=== PATIENT | male | born 1970 | race Caucasian/White ===

== ENCOUNTER 2017-09-15 07:40 | Observation (INO) | payer OTHER ==
[~2017-09-15] VITALS: Ht 185.4 cm; Wt 115.7 kg
[~2017-09-15 07:40] MED LIST: CARAFATE1 GM PO; GLUCOPHAGE500 MG PO; ZANTAC150 MG
[2017-09-15] MEDS ORDERED: ASPIRIN 81 MG CHEW TAB PO STA (07:58)
--- NOTE | 2017-09-15 08:28 | Diagnostic Imaging Report ---
PROCEDURE: CHEST SINGLE (PORTABLE) COMPARISON: None. INDICATIONS: CHEST PAIN FINDINGS: LUNGS: No consolidations or edema. PLEURA: No effusions or pneumothorax. HEART \T\ MEDIASTINUM: The heart is within normal size-limits. There is mild tortuosity of the aorta. BONES \T\ SOFT TISSUES: No acute findings. CONCLUSION: No acute thoracic abnormality. Philippe Torres D.O. Dictated by: Philippe Torres D.O. on 09/15/2017 at 8:32 Electronically approved by: Philippe Torres D.O. on 09/15/2017 at 8:32
[2017-09-15 09:00] LABS: BASOPHILS # (AUTO) 0.1 (0.0-0.1); BASOPHILS % 1.2 % (0.0-1.0); EOSINOPHILS # (AUTO) 0.2 (0.0-0.4); HEMATOCRIT 42.8 % (38.2-49.6); HEMOGLOBIN 14.6 g/dL (14.0-18.0); LYMPHOCYTES # (AUTO) 2.8 (1.0-3.2); LYMPHOCYTES % 38.5 % (18.0-39.1); MEAN CORPUSCULAR HGB CONC 34.1 g/dL (31-35); MEAN CORPUSCULAR VOLUME 93.9 fL (81-99); MONOCYTES # (AUTO) 0.8 (0.2-0.8); MONOCYTES % 10.2 % (4.4-11.3); NEUTROPHILS # (AUTO) 3.5 (2.1-6.9); NEUTROPHILS % 47.6 % (38.7-80.0); PLATELET COUNT 197 x10e3/uL (140-360); RED BLOOD COUNT 4.56 x10e6/uL (4.3-5.7)
[2017-09-15] MEDS: NITROGLYCERIN 0.4 MG SUBL SL PRN ×3 (09:00→09:20)
[2017-09-15 09:09] LABS: INR 0.94; PROTHROMBIN TIME 11.8 seconds (11.9-14.5)
[2017-09-15 09:10] LABS: PARTIAL THROMBOPLASTIN TIME 25.2 seconds (23.8-35.5)
[2017-09-15] MEDS ORDERED: MORPHINE SULFATE 2 MG/ML SYR IV STA ×2 (09:17→10:54)
[2017-09-15 09:22] LABS: ALANINE AMINOTRANSFERASE 32 IU/L (0-55); ALBUMIN 3.8 g/dL (3.5-5.0); ALBUMIN/GLOBULIN RATIO 1.2 (0.8-2.0); ALKALINE PHOSPHATASE 41 IU/L (40-150); ANION GAP 16.3 mmol/L (8-16); BLOOD UREA NITROGEN 13 mg/dL (7-26); BUN/CREATININE RATIO 15 (6-25); CALCIUM 9.5 mg/dL (8.4-10.2); CARBON DIOXIDE 24 mmol/L (22-29); CHLORIDE 101 mmol/L (98-107); CREATINE KINASE 92 IU/L (30-200); CREATININE, SERUM 0.87 mg/dL (0.72-1.25); EST GLOMERULAR FILTRATION RATE > 60 ML/MIN (60-); GLUCOSE 275 mg/dL (74-118); POTASSIUM 4.3 mmol/L (3.5-5.1); SODIUM 137 mmol/L (136-145)
[2017-09-15] MEDS ORDERED: LIDOCAINE VISC 2% SOLN 15 ML UDC PO ONE (09:45)
[2017-09-15] MEDS ORDERED: MAGNESIUM/ALUMINUM/SIMETHICONE 30 ML UDC PO ONE (09:45)
--- NOTE | 2017-09-15 11:22 | Diagnostic Imaging Report ---
PROCEDURE: CT scan of the chest WITH intravenous contrast, using PE protocol. TECHNIQUE: The chest was scanned utilizing a multidetector helical scanner from the lung apex through the level of the adrenal glands after the IV administration of 72 cc of Isovue 370. Coronal and sagittal multiplanar reformations were obtained. DLP: 642.05 mGy-cm COMPARISON: None. INDICATIONS: CHEST PAIN FINDINGS: Lines/tubes: None. Lungs and Airways: The lungs and airways are normal with no focal abnormality demonstrated. No filling defects within the pulmonary arteries are noted. Pleura: The pleural spaces are clear. Heart and mediastinum: The thyroid gland is normal. No significant mediastinal, hilar or axillary lymphadenopathy is seen. The heart and pericardium are within normal limits. There is a persistent left superior vena cava. The azygos vein is on the left side. Soft tissues: Normal. Abdomen: Limited contrast-enhanced views of the upper abdomen show no abnormality within the visualized liver, spleen, pancreas or kidneys. The adrenal glands are normal. Bones: Degenerative changes of the spine. IMPRESSION: 1. No CTA evidence of pulmonary emboli. 2. Left-sided superior vena cava. Philippe Torres D.O. Dictated by: Philippe Torres D.O. on 09/15/2017 at 11:07 Electronically approved by: Philippe Torres D.O. on 09/15/2017 at 11:27
[2017-09-15] MEDS ORDERED: METOPROLOL TARTRATE 25 MG TAB PO SCH (11:45)
[2017-09-15] MEDS ORDERED: MORPHINE SULFATE 2 MG/ML SYR IV PRN (11:45)
[2017-09-15] MEDS ORDERED: LISINOPRIL10 MG PO (12:56)
[2017-09-15] MEDS ORDERED: NOVOLOG MI100 UNIT/1 (12:56)
[2017-09-15 13:30] VITALS: BP 142/68
--- NOTE | 2017-09-15 14:46 | Consultation ---
DATE OF CONSULTATION: September 15, 2017 CARDIOLOGY CONSULTATION INDICATIONS: Chest pain. HISTORY OF PRESENT ILLNESS: Mr. Roth is a healthy 47-year-old gentleman with a history of hypertension, for which he takes lisinopril. He came in with almost constant substernal chest pressure. This is worse when he coughs or moves. It is in the left side of his chest along his costochondral howard. He denies radiation. He does not relate it to exertion. CT scan done in the chest did not show any abnormalities, especially pulmonary emboli. PAST MEDICAL HISTORY: Hypertension. SOCIAL HISTORY: Patient smokes a pack of cigarettes a day. MEDICATIONS: Reviewed. DRUG ALLERGIES: PENICILLIN. REVIEW OF SYSTEMS: Negative except as dictated in the history of present illness. PHYSICAL EXAMINATION: VITALS: Afebrile, heart rate 66, blood pressure 135/86, O2 sats 95%. CARDIOVASCULAR: Regular rhythm. S4 gallop. LUNGS: Clear to auscultation bilaterally. CHEST WALL: Is tender. ABDOMEN: Soft. LABORATORY DATA: Cardiac troponin is negative. BNP level is normal. Lipase is negative. Remaining labs are normal. Glucose was 275. ASSESSMENT: Costochondritis. RECOMMENDATION: Initiation of NSAIDs, i.e., ibuprofen 400 mg 3 times a day. Echocardiogram to evaluate for pericarditis. If these are normal and once performed, the patient may be discharged with close followup in the office. I thank Dr. Guerra for this consultation. Job#: [id number] PHOEBE
[2017-09-15] MEDS ORDERED: IBUPROFEN 400 MG TAB PO SCH (15:00)
[2017-09-15] MEDS ORDERED: DEXTROSE 50% SYRINGE 50 ML IV PRN (15:00)
[2017-09-15] MEDS ORDERED: LISINOPRIL 20 MG TAB PO SCH (15:00)
[2017-09-15] MEDS ORDERED: HYDROCHLOROTHIAZIDE 25 MG TAB PO SCH (15:00)
[2017-09-15 15:25] VITALS: BP 151/86
[2017-09-15] MEDS ORDERED: ADDERALL 12.512.5 MG (15:49)
[2017-09-15] MEDS ORDERED: ADDERALL 10 MG10 MG (15:49)
[2017-09-15] MEDS ORDERED: NICODERM CQ1 EAC1 TOP (15:55)
[2017-09-15] MEDS ORDERED: ESIDRIX25 MG PO (15:55)
[2017-09-15] MEDS ORDERED: Ibuprofen PO (15:55)
[2017-09-15 16:23] LABS: CREATINE KINASE 72 IU/L (30-200)
[2017-09-15] MEDS ORDERED: MORPHINE SULFATE INJ 4 MG/ML INJ IV PRN (16:30)
[2017-09-15] MEDS ORDERED: FAMOTIDINE 20 MG TAB PO SCH (16:30)
[2017-09-15] MEDS ORDERED: INSULIN LISPRO 100 UNIT/1 ML 3ML VIAL SQ SCH (16:30)
[2017-09-15] MEDS ORDERED: ENOXAPARIN SOD INJ 40 MG/0.4 ML SYR SC SCH (17:00)
[2017-09-15] MEDS ORDERED: SODIUM CHLORIDE 0.9% 50ML 50 ML ONE (19:48)
[2017-09-15] MEDS ORDERED: IOPAMIDOL 370 MG/ML 200 ML INFUS..BTL INJ ONE (19:48)
--- NOTE | 2017-09-16 01:25 | Discharge Summary ---
ADMISSION DIAGNOSES 1. Chest pain. 2. Type 2 diabetes. 3. Gastritis. 4. Hypertension. 5. Cigarette use. DISCHARGE DIAGNOSES 1. Chest pain. 2. Type 2 diabetes. 3. Gastritis. 4. Hypertension. 5. Cigarette use. 6. Rule out acute coronary syndrome. HISTORY: Patient has a history of type 2 diabetes, pancreatitis, gastritis, and ADHD. No surgical history. HOSPITAL COURSE: A 47-year-old male complains of sharp intermittent chest pain that began around 4 a.m. The pain radiated to the left shoulder to axillary. Starting at 5:30, the pain became constant. There were no associated palpitations, shortness of breath, diaphoresis, or change in consciousness. Pain improved with the 3rd dose of sublingual nitroglycerin. Upon assessment, pain is now described as an 8. On admission, the patient had an EKG that showed normal sinus rhythm. Echo showed 55 to 60% EF. Troponin negative times 1. Cardiology consulted. Patient resumed on home medications for gastritis and hypertension. He was prescribed nicotine patch for the cigarette use and a low-dose sliding scale for the diabetes. Per cardiology, patient can discharge home due to the negative chest x-ray, negative CT of the chest as well as echo showing EF of 55 to 60%. He can be given a week of ibuprofen 400 mg t.i.d. per cardiology and follow up in 7 days. Due to the high diastolic blood pressure, patient was also prescribed hydrochlorothiazide 12.5 mg p.o. At time of discharge, the patient's blood pressure is 143/72 with a pulse of 71. Sodium 137, potassium 4.3, creatinine 0.87, GFR of over 60. WBC 7.32, hemoglobin 14.6, and hematocrit 42.8. Vital signs stable. Patient afebrile. He will discharge home and follow up with cardiology in 2 weeks and primary care in 1 to 2 weeks. Patient understands discharge instructions and agrees to discharge. Dictated by Ingrid Jamison NP JUSTINA TERAN MD Job#: [id number] CF
[2017-09-16] MEDS ORDERED: SUCRALFATE 1 GM TAB PO SCH (07:30)
[2017-09-16] MEDS ORDERED: NICOTINE 14 MG/EA PATCH TOP SCH ×2 (09:00)
[2017-09-16] MEDS ORDERED: LISINOPRIL 20 MG TAB PO SCH (09:00)
[2017-09-16] MEDS ORDERED: FAMOTIDINE 20 MG TAB PO SCH (09:00)
[2017-09-16] MEDS ORDERED: ASPIRIN 325 MG TAB EC PO SCH (09:00)
[2017-09-16] MEDS ORDERED: NITROGLYCERIN 0.1MG/HR PATCH TOP SCH (09:00)
== END 2017-09-15 19:18 | disposition home or self-care (01) ==
LOC: ER 07:40 → ERHOLD 11:34 → IMCU 12:35
PROVIDERS: ADMIT Internal Medicine; ATTEND Internal Medicine
DX: R07.2 Precordial pain (principal); M94.0 Chondrocostal junction syndrome [Tietze]; I10 Essential (primary) hypertension; E11.9 Type 2 diabetes mellitus without complications; F17.210 Nicotine dependence, cigarettes, uncomplicated; F90.9 Attention-deficit hyperactivity disorder, unspecified type; K85.90 Acute pancreatitis without necrosis or infection, unspecified; K29.70 Gastritis, unspecified, without bleeding
CPT/HCPCS: 36415; 71045; 71260; 80053; 82550; 82553; 83690; 83880; 84484; 85025; 85610; 85730; 93005; 93306; 99284; G0378; J1650; J2270 ×2; Q9967

== ENCOUNTER 2018-09-15 10:01 | Inpatient (IN) | payer BC, OTHER ==
[2018-09-15] VITALS (13 sets, daily range): BP systolic 89–123; BP diastolic 46–86
[~2018-09-15] VITALS: Ht 185.4 cm; Wt 93.0 kg
[~2018-09-15 10:01] MED LIST changes: +ADDERALL 10 MG10 MG; +ADDERALL 12.512.5 MG; +ESIDRIX25 MG PO; +Ibuprofen PO; +LISINOPRIL10 MG PO; +NICODERM CQ1 EAC1 TOP; +NOVOLOG MI100 UNIT/1
--- OUTSIDE RECORDS SUMMARY | 2018-09-15 10:04 | XMS REPORT | Clinical Summary ---
Author Author [facility] Organization [facility] Address Unknown Phone Unavailable Care Team Providers Care Roller Checker Name Role Phone Vivek Pino MD PCP Allergies Comments Active Allergy Reactions Severity Noted Date Penicillins Anaphylaxis High 01/27/2017 Medications End Date Status Medication Sig Dispensed Refills Start Date Active insulin ASPART (NovoLOG) Inject under 0 100 unit/mL injection the skin 3 (three) times a day before meals. Active metFORMIN (GLUCOPHAGE) Take 500 mg 0 500 mg tablet by mouth 2 (two) times a day with meals. Active lisinopril Take 10 mg by 0 (PRINIVIL,ZESTRIL) 10 mg mouth daily. tablet Active insulin NPH and regular Inject 20 0 human (HumuLIN 70/30) 100 Units under unit/mL (70-30) injection the skin 2 (two) times a day before meals. Active Problems Not on file Social History Date Tobacco Use Types Packs/Day Years Used Current Every Day Smoker 2 Alcohol Use Drinks/Week oz/Week Comments Yes Sex Assigned at Date Recorded Not on file Industry Job Start Date Occupation Not on file Not on file Not on file Travel End Travel History Travel Start No recent travel history available. Last Filed Vital Signs Not on file Plan of Treatment Not on file Results Not on fileafter 09/14/2017 Advance Directives Patient has advance care planning documents on file. For more information, eren bearden contact: Julio Calderon [address] [place] [address]
--- NOTE | 2018-09-15 10:42 | NUR ---
PATIENT REPORTS HE IS NOT ALLERGIC TO TORADOL, STATES "IT DOESNT WORK". MIKEDRAFTER AT BEDSIDE FOR RE-EVAL AND DISCUSSING THE CURRENT PLAN OF CARE WITH PATIENT,VERBALIZED UNDERSTANDING.
[2018-09-15] MEDS ORDERED: KETOROLAC TROMETHAMINE 30 MG/ML VIAL IV NR (10:45)
[2018-09-15] MEDS: SODIUM CHLORIDE 0.9% 1000ML 1,000 ML IV STA (10:45)
[2018-09-15] MEDS: DIPHENHYDRAMINE HCL INJ 50 MG/ML VIAL IV ONE ×2 (10:46→10:49)
[2018-09-15] MEDS: METOCLOPRAMIDE HCL 10 MG/2ML VIAL IV ONE ×2 (10:46→10:49)
[2018-09-15 10:56] LABS: BASOPHILS # (AUTO) 0.1 (0.0-0.1); EOSINOPHILS # (AUTO) 0.1 (0.0-0.4); EOSINOPHILS % 0.8 % (0.0-6.0); HEMATOCRIT 40.1 % (38.2-49.6); HEMOGLOBIN 15.3 g/dL (14.0-18.0); LYMPHOCYTES # (AUTO) 2.7 (1.0-3.2); LYMPHOCYTES % 24.3 % (18.0-39.1); MEAN CORPUSCULAR HEMOGLOBIN 32.8 pg (28-32); MEAN CORPUSCULAR HGB CONC 38.2 g/dL (31-35); MEAN CORPUSCULAR VOLUME 85.9 fL (81-99); MONOCYTES % 9.3 % (4.4-11.3); NEUTROPHILS % 64.1 % (38.7-80.0); PLATELET COUNT 212 x10e3/uL (140-360); RED BLOOD COUNT 4.67 x10e6/uL (4.3-5.7); RED CELL DISTRIBUTION WIDTH 11.9 % (11.7-14.4)
--- NOTE | 2018-09-15 10:57 | NUR ---
1045- 1L NS started wide open to RT AC 1045- Reglan 10mg slow IVP to RT AC 1048- Benadryl 25mg slow IVP to RT AC 1056- Toradol 30mg IVP to RT AC ALISSA Lizama
[2018-09-15 11:30] LABS: ALANINE AMINOTRANSFERASE 26 IU/L (0-55); ALBUMIN 4.1 g/dL (3.5-5.0); ALBUMIN/GLOBULIN RATIO 1.1 (0.8-2.0); ALKALINE PHOSPHATASE 53 IU/L (40-150); ANION GAP 22.7 mmol/L (8-16); BLOOD UREA NITROGEN 32 mg/dL (7-26); BUN/CREATININE RATIO 18 (6-25); CALCIUM 10.1 mg/dL (8.4-10.2); CARBON DIOXIDE 25 mmol/L (22-29); CHLORIDE 72 mmol/L (98-107); CREATINE KINASE 81 IU/L (30-200); CREATININE, SERUM 1.82 mg/dL (0.72-1.25); EST GLOMERULAR FILTRATION RATE 40 ML/MIN (60-)
[2018-09-15 11:35] LABS: BILIRUBIN,URINE NEGATIVE (NEGATIVE); CLARITY,URINE CLEAR (CLEAR); COLOR,URINE YELLOW (YELLOW); KETONES,URINE NEGATIVE (NEGATIVE); LEUKOCYTE ESTERASE ,URINE NEGATIVE (NEGATIVE); NITRITE,URINE NEGATIVE (NEGATIVE); PROTEIN,URINE DIPSTICK NEGATIVE (NEGATIVE); URINE UROBILINOGEN 0.2 mg/dL (0.2 - 1)
[2018-09-15 11:37] LABS: GLUCOSE 730 mg/dL (74-118); POTASSIUM 2.7 mmol/L (3.5-5.1); SODIUM 117 mmol/L (136-145)
--- NOTE | 2018-09-15 11:37 | NUR ---
LAB CALLED TO NOTIFY CRITICAL LAB RESULTS, NA+ 117, K+ 2.7, GLUCOSE 730. NOTIFIED ALISSA MCKEON OF LAB RESULTS. NO NEW ORDERS NOTED AT THIS TME.
[2018-09-15] MEDS ORDERED: SODIUM CHLORIDE 0.9% 1000ML 1,000 ML IV SCH ×2 (11:57→15:15)
[2018-09-15] MEDS ORDERED: DEXTROSE 5%/0.45% SOD CHL 1,000 ML IV SCH (11:57)
[2018-09-15] MEDS ORDERED: KCL 40MEQ/0.9% SOD CHL 1,000 ML IV ONE (12:00)
[2018-09-15] MEDS ORDERED: POTASSIUM CHLORIDE 20 MEQ TAB CR PO NR (12:00)
[2018-09-15] MEDS ORDERED: MAGNESIUM SULF 1GRAM/DEXTROSE 100 ML IV PRN (12:00)
[2018-09-15] MEDS ORDERED: POTASSIUM CHLORIDE 20MEQ/100ML 200 ML IV PRN (12:00)
[2018-09-15] MEDS ORDERED: INSULIN REGULAR, HUMAN 3ML VL 1 UNIT in SODIUM CHLORIDE 0.9% 100 ML IV SCH ×2 (12:00)
[2018-09-15] MEDS ORDERED: ONDANSETRON HCL INJ 2MG/ML 2ML 2 MG/ML VIAL IV PRN (12:00)
--- NOTE | 2018-09-15 12:04 | Diagnostic Imaging Report ---
EXAM: CHEST 2 VIEWS, PA and lateral DATE: 09/15/2018 Time stamp on exam: 10:50 AM INDICATION: Dizziness COMPARISON: None FINDINGS: LINES/TUBES: None LUNGS: No consolidations or edema. Nodular opacities overlie the lower lung cardenas compatible with prominent nipple shadows. PLEURA: No effusions or pneumothorax. HEART AND MEDIASTINUM: Normal size and contour. BONES AND SOFT TISSUES: No acute findings. Degenerative changes of the spine with mild wedging of two of the lower thoracic spine vertebral bodies. IMPRESSION: No acute thoracic abnormality. Signed by: Dr. Philippe Torres DO on 09/15/2018 12:00 PM
[2018-09-15] MEDS ORDERED: HUMAN IV SCH ×2 (12:15)
[2018-09-15] MEDS ORDERED: SODIUM CHLORIDE 0.9% IV SCH ×2 (12:15)
[2018-09-15] MEDS ORDERED: INSULIN REGULAR, HUMAN 3ML VL 100 UNIT in SODIUM CHLORIDE 0.9% 99 ML IV SCH ×2 (12:15)
[2018-09-15] MEDS ORDERED: INSULIN REGULAR IV SCH ×2 (12:15)
[2018-09-15] MEDS ORDERED: [UNRECOGNIZED DRUG - OTHER] IV SCH ×2 (12:15)
[2018-09-15 12:16] LABS: EPITHELIAL CELLS,URINE FEW /LPF
--- OUTSIDE RECORDS SUMMARY | 2018-09-15 12:23 | XMS REPORT | Clinical Summary ---
Author Author [facility] Organization [facility] Address Unknown Phone Unavailable Care Team Providers Care Housekeeper Head Name Role Phone Vivek Pino MD PCP [...] more information, eren bearden contact: Julio Calderon [address] [place] [address]
[2018-09-15] MEDS: POTASSIUM CHLORIDE 20MEQ/100ML 100 ML INJ PRN (12:33)
--- NOTE | 2018-09-15 12:43 | Diagnostic Imaging Report ---
History: Headache, dizziness Comparison studies: None Technique: Axial images were obtained from the skull base to the vertex. Coronal and sagittal reconstructions obtained from the axial data. Dose modulation, iterative reconstruction, and/or weight based adjustment of the mA/kV was utilized to reduce the radiation dose to as low as reasonably achievable. Findings: Scalp/skull: No abnormalities. No fractures, blastic or lytic lesions. Extra-axial spaces: No masses. No fluid collections. Brain sulci: Appropriate for age. Ventricles: Normal in size and configuration. No hydrocephalus. Parenchyma: No abnormal densities. No masses, hemorrhage, acute or chronic cortical vascular insults. Sellar/suprasellar region: No abnormalities Craniocervical junction: Patent foramen magnum. No Chiari one malformation. IMPRESSION: No abnormalities . Signed by: DR Gus Wong M.D. on 09/15/2018 12:40 PM
[2018-09-15] MEDS ORDERED: INSULIN REGULAR, HUMAN 3ML VL 100 UNIT in SODIUM CHLORIDE 0.45% 100 ML 100 ML IV SCH ×2 (13:57)
[2018-09-15] MEDS ORDERED: DEXTROSE 50% SYRINGE 50 ML IV PRN ×2 (14:00)
[2018-09-15] MEDS: ACETAMINOPHEN/CODEINE 300MG - 30MG TAB PO PRN (14:09)
--- NOTE | 2018-09-15 14:15 | NUR ---
notified dr combs of consult
[2018-09-15 14:59] LABS: CALCIUM 9.4 mg/dL (8.4-10.2); CREATININE, SERUM 1.61 mg/dL (0.72-1.25); MAGNESIUM 2.4 MG/DL (1.3-2.1)
[2018-09-15] MEDS ORDERED: POTASSIUM CHLORIDE 20MEQ/100ML 100 ML IV ONE (15:00)
[2018-09-15] MEDS ORDERED: PNEUMOCOCCAL VACCINE POLYVALENT 23 MCG/0.5 ML VIAL IM SCH (15:06)
[2018-09-15 15:31] LABS: FREE T4 (FREE THYROXINE) 0.99 ng/dL (0.8-1.8); THYROID STIMULATING HORMONE 1.119 uIU/mL (0.350-4.940)
[2018-09-15] MEDS ORDERED: [UNRECOGNIZED DRUG - OTHER] (17:44)
[2018-09-15] MEDS ORDERED: ASPIRIN81 MG (17:44)
[2018-09-15] MEDS ORDERED: LANTUS 3ML100 UNITS/ SQ (17:44)
[2018-09-15] MEDS ORDERED: VENTOLIN HFA18 GM IH (17:44)
[2018-09-15] MEDS ORDERED: ATENOLOL-CHLOR1 EACH PO (17:44)
[2018-09-15] MEDS ORDERED: trelegy IH (17:44)
[2018-09-15] MEDS ORDERED: CHLOR (17:44)
[2018-09-15] MEDS ORDERED: NIFEDIPINE ER30 M1 PO (17:44)
[2018-09-15] MEDS: POTASSIUM CHLORIDE 40 MEQ in SODIUM CHLORIDE 0.9% 1000ML 1,000 ML IV SCH (18:14)
[2018-09-15] MEDS ORDERED: HYDRALAZINE HCL 20 MG/ML VIAL IV PRN (18:45)
[2018-09-15] MEDS ORDERED: NIFEDIPINE CR 30 MG TAB PO SCH (18:45)
[2018-09-15] MEDS: METOCLOPRAMIDE HCL 10 MG TAB PO SCH (20:02)
--- NOTE | 2018-09-15 21:25 | Consultation ---
DATE OF CONSULTATION: 09/15/2018 Endocrine Consultation Thank you very much for referring this patient. HISTORY OF PRESENT ILLNESS: This is a 48-year-old white male gentleman who was referred to me for evaluation of uncontrolled diabetes mellitus and diabetic ketoacidosis. The patient reported he is a known diabetic for almost five years. He is mostly on oral hypoglycemics, glyburide, and metformin and recently was started on 70/30 insulin twice a day. He came to the hospital with history of headache, extreme weakness, nausea. On further evaluation, blood sugar was found to be 730, and anion gap is significantly elevated at 22.7 with a sodium of 117 and a potassium of 2.7. His creatinine was 1.82. The patient is a chronic smoker. He also has history of hypertension. PHYSICAL EXAMINATION: GENERAL: Today, the patient is alert, awake, and little bit apprehensive, moderately overweight. VITAL SIGNS: His heart rate is around 95. Blood pressure is 95/70 mmHg. HEENT: Essentially unremarkable. CHEST: Bilateral vesicular breathing with bronchospasm. CARDIOVASCULAR: First and second heart sounds. There are no third or fourth heart sounds with the systolic grade 2/6. NEUROLOGIC: The patient has evidence of diabetic sensorimotor neuropathy in both lower extremities. CLINICAL IMPRESSION: Diabetes mellitus type 2, diabetic ketoacidosis, dehydration, chronic smoker, chronic obstructive pulmonary disease. PLAN: At this time is to continue the insulin drip. Monitor his blood sugars, correct his hyponatremia and hypokalemia. We will also put him on the full liquid diet. Thanks for referring this patient. I will be following this patient with you. MD STEPHANIE Cowan/MODL /[id number] RADHA
[2018-09-16] VITALS (20 sets, daily range): BP systolic 85–159; BP diastolic 51–101
[2018-09-16] MEDS: POTASSIUM CHLORIDE 40 MEQ in SODIUM CHLORIDE 0.9% 1000ML 1,000 ML IV SCH ×4 (00:34→21:51)
[2018-09-16 05:23] LABS: BASOPHILS # (AUTO) 0.1 (0.0-0.1); BASOPHILS % 0.8 % (0.0-1.0); EOSINOPHILS # (AUTO) 0.3 (0.0-0.4); EOSINOPHILS % 3.3 % (0.0-6.0); HEMATOCRIT 35.8 % (38.2-49.6); LYMPHOCYTES # (AUTO) 3.3 (1.0-3.2); LYMPHOCYTES % 36.5 % (18.0-39.1); MEAN CORPUSCULAR HEMOGLOBIN 32.6 pg (28-32); MEAN CORPUSCULAR HGB CONC 36.3 g/dL (31-35); MEAN CORPUSCULAR VOLUME 89.7 fL (81-99); MONOCYTES % 10.8 % (4.4-11.3); NEUTROPHILS # (AUTO) 4.4 (2.1-6.9); NEUTROPHILS % 48.1 % (38.7-80.0); PLATELET COUNT 170 x10e3/uL (140-360); RED BLOOD COUNT 3.99 x10e6/uL (4.3-5.7); RED CELL DISTRIBUTION WIDTH 12.2 % (11.7-14.4)
[2018-09-16 05:43] LABS: ANION GAP 11.2 mmol/L (8-16); BLOOD UREA NITROGEN 33 mg/dL (7-26); BUN/CREATININE RATIO 27 (6-25); CALCIUM 9.3 mg/dL (8.4-10.2); CARBON DIOXIDE 31 mmol/L (22-29); CHLORIDE 95 mmol/L (98-107); CREATININE, SERUM 1.21 mg/dL (0.72-1.25); EST GLOMERULAR FILTRATION RATE > 60 ML/MIN (60-); GLUCOSE 202 mg/dL (74-118); POTASSIUM 3.2 mmol/L (3.5-5.1); SODIUM 134 mmol/L (136-145)
[2018-09-16] MEDS: INSULIN REGULAR, HUMAN 3ML VL 100 UNIT in SODIUM CHLORIDE 0.45% 100 ML 100 ML IV SCH ×10 (05:47→18:44)
[2018-09-16] MEDS: POTASSIUM CHLORIDE 20MEQ/100ML 100 ML INJ PRN (05:54)
[2018-09-16] MEDS ORDERED: POTASSIUM CHLORIDE 20MEQ/100ML 100 ML ONE (05:56)
[2018-09-16] MEDS: GUAIFENESIN 600 MG TAB PO SCH ×3 (05:56→17:33)
[2018-09-16] MEDS: ALBUTEROL/IPRATROPIUM 3 ML NEB NEB SCH ×3 (07:00→20:30)
[2018-09-16] MEDS: FAMOTIDINE 20 MG TAB PO SCH ×2 (08:52→17:33)
[2018-09-16] MEDS: METOCLOPRAMIDE HCL 10 MG TAB PO SCH ×4 (08:52→21:49)
[2018-09-16] MEDS: ASPIRIN 81 MG CHEW TAB PO SCH (08:52)
[2018-09-16] MEDS: ACETAMINOPHEN/CODEINE 300MG - 30MG TAB PO PRN ×3 (08:52→22:23)
[2018-09-16] MEDS ORDERED: NON-FORMULARY MEDICATION (Atenolol/Chlorthalidone (Atenolol-Chlorthalidone 100-25) 1 TAB) PO SCH (09:00)
[2018-09-16] MEDS ORDERED: LISINOPRIL 10 MG TAB PO SCH (09:00)
[2018-09-16] MEDS ORDERED: KETOROLAC TROMETHAMINE 30 MG/ML VIAL IV PRN (13:15)
[2018-09-16] MEDS ORDERED: INSULIN LISPRO 100 UNIT/1 ML 3ML VIAL SQ ONE (14:30)
[2018-09-16] MEDS ORDERED: INSULIN REGULAR, HUMAN 100 UNIT/1 ML 3ML VIAL ONE (14:50)
[2018-09-16] MEDS ORDERED: INSULIN GLARGINE 100 UNITS/ML VIAL SQ SCH (21:00)
[2018-09-16] MEDS ORDERED: DEXTROSE 50% SYRINGE 50 ML IV PRN (21:45)
[2018-09-16] MEDS: INSULIN LISPRO 100 UNIT/1 ML 3ML VIAL SQ SCH (21:50)
--- NOTE | 2018-09-16 22:14 | NUR ---
Dr. Velez notified of BG 334 at 2130. Received orders to initiate sliding scale with first dose now, increase Humalog with meals, and to continue scheduled Lantus dose. Report given to Avel ABEL on MS3. Patient escorted off unit via WC by RN with all belongings and family members at 2210. No acute signs of distress.
--- NOTE | 2018-09-16 22:17 | NUR ---
Received patient from ICU via wheelchair.AAOX4 and amb. No resp distress. C/o of CARDOZO rating 5 on pain scale. Denies sweating, or n/v/d. Call light within reach and instructed to call for assistance.
[2018-09-17] MEDS: GUAIFENESIN 600 MG TAB PO SCH ×3 (00:37→12:10)
[2018-09-17 00:55] VITALS: BP 103/62
[2018-09-17] MEDS: ALBUTEROL/IPRATROPIUM 3 ML NEB NEB SCH ×3 (01:00→13:00)
[2018-09-17 03:53] LABS: BASOPHILS # (AUTO) 0.1 (0.0-0.1); BASOPHILS % 0.9 % (0.0-1.0); EOSINOPHILS # (AUTO) 0.2 (0.0-0.4); HEMATOCRIT 35.6 % (38.2-49.6); HEMOGLOBIN 12.6 g/dL (14.0-18.0); LYMPHOCYTES # (AUTO) 2.8 (1.0-3.2); LYMPHOCYTES % 36.8 % (18.0-39.1); MEAN CORPUSCULAR HEMOGLOBIN 32.7 pg (28-32); MEAN CORPUSCULAR HGB CONC 35.4 g/dL (31-35); MEAN CORPUSCULAR VOLUME 92.5 fL (81-99); MONOCYTES # (AUTO) 0.6 (0.2-0.8); MONOCYTES % 7.2 % (4.4-11.3); NEUTROPHILS % 51.7 % (38.7-80.0); PLATELET COUNT 175 x10e3/uL (140-360); RED BLOOD COUNT 3.85 x10e6/uL (4.3-5.7); RED CELL DISTRIBUTION WIDTH 12.4 % (11.7-14.4)
[2018-09-17 04:14] LABS: ANION GAP 12.6 mmol/L (8-16); BLOOD UREA NITROGEN 22 mg/dL (7-26); BUN/CREATININE RATIO 24 (6-25); CALCIUM 9.2 mg/dL (8.4-10.2); CARBON DIOXIDE 24 mmol/L (22-29); CHLORIDE 104 mmol/L (98-107); CREATININE, SERUM 0.92 mg/dL (0.72-1.25); EST GLOMERULAR FILTRATION RATE > 60 ML/MIN (60-); GLUCOSE 232 mg/dL (74-118); POTASSIUM 3.6 mmol/L (3.5-5.1); SODIUM 137 mmol/L (136-145)
[2018-09-17 04:47] VITALS: BP 134/82
--- NOTE | 2018-09-17 07:25 | NUR ---
PATIENT AMBULATED TO THE RESTROOM AND BACK TO CHAIR. DENIED PAIN AT THIS TIME. CALL LIGHT AT REACH.
[2018-09-17] MEDS: INSULIN LISPRO 100 UNIT/1 ML 3ML VIAL SQ SCH ×6 (07:30→16:30)
[2018-09-17] MEDS ORDERED: INSULIN LISPRO 100 UNIT/1 ML 3ML VIAL SQ SCH (07:30)
[2018-09-17] MEDS: METOCLOPRAMIDE HCL 10 MG TAB PO SCH ×3 (07:45→16:30)
[2018-09-17] MEDS: FAMOTIDINE 20 MG TAB PO SCH ×2 (07:45→16:30)
[2018-09-17 08:11] VITALS: BP 156/90
[2018-09-17] MEDS: ASPIRIN 81 MG CHEW TAB PO SCH (09:06)
[2018-09-17 09:08] VITALS: BP 156/90
[2018-09-17] MEDS: POTASSIUM CHLORIDE 40 MEQ in SODIUM CHLORIDE 0.9% 1000ML 1,000 ML IV SCH (09:33)
--- NOTE | 2018-09-17 11:38 | NUR ---
PATIENT AMBULATING IN HALLWAY, NO COMPLAIN VOICED. WILL CLOSELY MONITOR.
[2018-09-17 12:14] VITALS: BP 159/96
--- NOTE | 2018-09-17 15:20 | NUR ---
PATIENT OUT OF BED TO CHAIR TALKING TO FAMILY MEMBERS VISITING. CALL LIGHT AT REACH.
--- NOTE | 2018-09-17 15:55 | NUR ---
Nutrition Screen Note RD Recommendation for Physician: -Continue ADA diet as ordered -RD provided handouts on diabetic diet. Plan of Care: RD following, monitoring for tolerance and adequacy, diet education Nutrition reason for involvement: RN Consult Diabetic teaching Primary Diagnose(s): DKA PMH: HTN, Chronic smoker Ht: 73in Wt: 205lb BMI: 27.0kg/m2 IBW: 184lb RD Assessment: (09/17) Chart reviewed. Labs and meds reviewed. 48yo M, who was admitted for DKA. BG has trend down from 730 to 259. Pt has been a diabetic for almost five years. He is mostly on oral hypoglycemics, glyburide, and metformin and recently was started on 70/30 insulin twice a day. Visited pt in the room. Pt reports of recent diet changes due to the hot weather and change in work environment. HbA1c at 13.2%. Pt states he will follow up with placement interviewer on Wednesday. Pt is not interested in any further diet education. Handouts on meal planning, carbohydrate counting, and s/s of hypo/hyperglycemia were provided. Current diet is adequate and appropriate. Current Diet: ADA 2000 Malnutrition Evaluation (09/17) The patient does not meet criteria for a specified degree of malnutrition at this time. Will re-evaluate at follow-up as appropriate. Diet Education Needs Assessment: Diet education indicated, pt states that he has prior diet education and aware of what he can/ cannot eat. Handouts are given. Nutrition Care Level: low Signed: Cadence Jones, MS, RD, LD
[2018-09-17 16:23] VITALS: BP 157/81
--- NOTE | 2018-09-17 17:07 | NUR ---
PATIENT DISCHARGED HOME. DISCHARGE INSTRUCTIONS, PRESCRIPTIONS, AND FOLLOW UP GIVEN TO PATIENT, HE VERBALIZED UNDERSTANDING. IV TO RIGHT HAND REMOVED WITH TIP INTACT. ALL PERSONAL ITEMS TAKEN WITH PATIENT. REFUSED WHEEL CHAIR, BUT WAS ACCOMPANIED BY HOSPITAL STAFF TO FRONT LOBBY IN STABLE CONDITION.
[2018-09-17] MEDS ORDERED: INSULIN GLARGINE 100 UNITS/ML VIAL SQ SCH (21:00)
--- NOTE | 2018-09-19 13:27 | Discharge Summary ---
ADMISSION DIAGNOSES: 1. Diabetic ketoacidosis. 2. Acute kidney injury versus chronic kidney disease. 3. Uncontrolled type 2 diabetes. 4. Hypertension. 5. Gastroparesis. DISCHARGE DIAGNOSES: 1. Diabetic ketoacidosis. 2. Acute kidney injury versus chronic kidney disease. 3. Uncontrolled type 2 diabetes. 4. Hypertension. 5. Gastroparesis. HISTORY: The patient has a history of type 2 diabetes, hypertension, and benign mass of the left lung. SURGICAL HISTORY: Noncontributory. FAMILY HISTORY: Type 2 diabetes. SOCIAL HISTORY: The patient admits to occasional alcohol use and daily cigarette use. HOSPITAL COURSE: A 48-year-old male with type 2 diabetes, on metformin and Lantus, had a poor appetite lately, so he lost 20 pounds. He started feeling bad about 2 days ago. On admission, his blood sugar was 730. His anion gap was 22.7. The patient was started on an insulin drip per Endocrinology and the sugars weaned down fairly quickly. The patient is tolerating p.o. and is taken off the drip and we will discharge home and follow up with his chemical dependency professional in 1 to 2 weeks. He will discharge home with Basaglar 35 units at bedtime, Humalog 20 units t.i.d. with meals. The patient understands discharge instructions and agrees to plan. Vital signs stable. The patient is afebrile. Dictated by Ingrid Jamison NP MD SIMONE Watts/MARY ALICE /[id number]
== END 2018-09-17 17:05 | disposition home or self-care (01) | DRG 638 ==
LOC: ER 10:01 → ERHOLD 11:57 → ICU 13:15 → MED/SURG3 09-16 22:17
PROVIDERS: ADMIT Internal Medicine; ATTEND Internal Medicine
DX: E11.10 Type 2 diabetes mellitus with ketoacidosis without coma (principal); N17.9 Acute kidney failure, unspecified; J44.9 Chronic obstructive pulmonary disease, unspecified; E86.0 Dehydration; E87.6 Hypokalemia; Z79.4 Long term (current) use of insulin; Z88.0 Allergy status to penicillin; Z88.8 Allergy status to other drugs, medicaments and biological substances; Z82.49 Family history of ischemic heart disease and other diseases of the circulatory system; Z83.3 Family history of diabetes mellitus; E11.43 Type 2 diabetes mellitus with diabetic autonomic (poly)neuropathy; K31.84 Gastroparesis; E11.22 Type 2 diabetes mellitus with diabetic chronic kidney disease; I12.9 Hypertensive chronic kidney disease with stage 1 through stage 4 chronic kidney disease, or unspecified chronic kidney disease; N18.9 Chronic kidney disease, unspecified; Z72.0 Tobacco use
CPT/HCPCS: 36415; 70450; 71046; 80048; 80053; 81001; 82550; 82553; 82947; 82948; 83036; 83735; 84439; 84443; 84484; 85025; 93005; 94640; 96365; 99285; J1200; J1815; J1817; J1885; J2405; J2765; J3475; J3480; J7030; J7050

== ENCOUNTER 2018-11-26 21:24 | Inpatient (IN) | payer BC ==
[~2018-11-26] VITALS: Ht 185.4 cm; Wt 101.6 kg
[~2018-11-26 21:24] MED LIST changes: +ASPIRIN81 MG; +ATENOLOL-CHLOR1 EACH PO; +CHLOR; +LANTUS 3ML100 UNITS/ SQ; +NIFEDIPINE ER30 M1 PO; +VENTOLIN HFA18 GM IH; +[UNRECOGNIZED DRUG - OTHER]; +trelegy IH
--- OUTSIDE RECORDS SUMMARY | 2018-11-26 21:26 | XMS REPORT | Clinical Summary ---
Author Author [facility] Organization [facility] Address Unknown Phone Unavailable Care Team Providers Care Emr Analyst Name Role Phone Vivek Pino MD PCP [...] Years Used Current Every Day Smoker 2 Drinks/Week oz/Week Comments Alcohol Use Yes Sex Assigned at Date Recorded Not on file Industry Job Start Date Occupation Not on file Not on file Not on file Travel End Travel History Travel Start No recent travel history available. 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
[2018-11-26] MEDS ORDERED: SODIUM CHLORIDE 0.9% 1000ML 1,000 ML IV STA (22:24)
[2018-11-26] MEDS ORDERED: MORPHINE SULFATE INJ 4 MG/ML INJ 1ML IV STA (22:24)
[2018-11-26] MEDS ORDERED: ONDANSETRON HCL INJ 2MG/ML 2ML 2 MG/ML VIAL IV STA (22:24)
[2018-11-26] MEDS ORDERED: CEFEPIME 1GM/NS 0.9% 50 ML 50 ML IV STA (22:24)
[2018-11-26] MEDS ORDERED: ASPIRIN 81 MG CHEW TAB PO ONE (22:30)
[2018-11-26 22:39] LABS: BASOPHILS # (AUTO) 0.1 (0.0-0.1); EOSINOPHILS # (AUTO) 0.2 (0.0-0.4); EOSINOPHILS % 1.7 % (0.0-6.0); HEMATOCRIT 43.4 % (38.2-49.6); LYMPHOCYTES # (AUTO) 3.5 (1.0-3.2); LYMPHOCYTES % 33.7 % (18.0-39.1); MEAN CORPUSCULAR HEMOGLOBIN 31.5 pg (28-32); MEAN CORPUSCULAR HGB CONC 34.6 g/dL (31-35); MEAN CORPUSCULAR VOLUME 91.2 fL (81-99); MONOCYTES # (AUTO) 0.9 (0.2-0.8); MONOCYTES % 8.5 % (4.4-11.3); NEUTROPHILS # (AUTO) 5.6 (2.1-6.9); NEUTROPHILS % 54.7 % (38.7-80.0); PLATELET COUNT 252 x10e3/uL (140-360); RED BLOOD COUNT 4.76 x10e6/uL (4.3-5.7); RED CELL DISTRIBUTION WIDTH 12.4 % (11.7-14.4)
[2018-11-26] MEDS ORDERED: CLINDAMYCIN PHOS 900MG/ 50ML 50 ML IV STA (22:48)
[2018-11-26 22:53] LABS: ALANINE AMINOTRANSFERASE 22 IU/L (0-55); ALBUMIN 3.7 g/dL (3.5-5.0); ALBUMIN/GLOBULIN RATIO 1.2 (0.8-2.0); ALKALINE PHOSPHATASE 45 IU/L (40-150); ANION GAP 16.3 mmol/L (8-16); BLOOD UREA NITROGEN 13 mg/dL (7-26); BUN/CREATININE RATIO 12 (6-25); CALCIUM 10.2 mg/dL (8.4-10.2); CARBON DIOXIDE 20 mmol/L (22-29); CHLORIDE 101 mmol/L (98-107); CREATINE KINASE 44 IU/L (30-200); CREATININE, SERUM 1.13 mg/dL (0.72-1.25); EST GLOMERULAR FILTRATION RATE > 60 ML/MIN (60-); LIPASE 65 U/L (8-78); POTASSIUM 4.3 mmol/L (3.5-5.1); SODIUM 133 mmol/L (136-145)
[2018-11-26] MEDS ORDERED: ATORVASTATIN CA10 MG PO (22:59)
[2018-11-26] MEDS ORDERED: HUMALOG (22:59)
[2018-11-26] MEDS ORDERED: METFORMIN HCL1000 MG PO (22:59)
[2018-11-26] MEDS ORDERED: TRESIBA SC (22:59)
[2018-11-26] MEDS ORDERED: LISINOPRIL5 MG PO (22:59)
[2018-11-26] MEDS ORDERED: TESTOSTERO200 MG/1 M IM (22:59)
[2018-11-26] MEDS ORDERED: D-AMPHETAMINE PO (22:59)
[2018-11-26] MEDS ORDERED: JANUVIA100 MG PO (22:59)
[2018-11-26 23:12] LABS: GLUCOSE 433 mg/dL (74-118)
--- OUTSIDE RECORDS SUMMARY | 2018-11-26 23:17 | XMS REPORT | Clinical Summary ---
Author Author [facility] Organization [facility] Address Unknown Phone Unavailable Care Team Providers Care Riveter Hand Name Role Phone Vivek Pino MD PCP [...] Advance Directives For more information, please contact: [phone] Patient Integration Lead Explanation Type Date Recorded Advance Directives, Living Will and Medical Power of Area Coordinator
[2018-11-26] MEDS: SODIUM CHLORIDE 0.9% 1000ML 1,000 ML IV SCH (23:27)
--- NOTE | 2018-11-26 23:28 | NUR ---
PT PLACED ON TELE BOX 31
[2018-11-26] MEDS ORDERED: INSULIN REGULAR, HUMAN 100 UNIT/1 ML 3ML VIAL IV ONE (23:30)
[2018-11-27] VITALS (7 sets, daily range): BP systolic 125–161; BP diastolic 69–102
[2018-11-27 00:15] LABS: BILIRUBIN,URINE NEGATIVE (NEGATIVE); CLARITY,URINE CLEAR (CLEAR); COLOR,URINE YELLOW (YELLOW); KETONES,URINE NEGATIVE (NEGATIVE); LEUKOCYTE ESTERASE ,URINE NEGATIVE (NEGATIVE); NITRITE,URINE NEGATIVE (NEGATIVE); PROTEIN,URINE DIPSTICK NEGATIVE (NEGATIVE); URINE UROBILINOGEN 0.2 mg/dL (0.2 - 1)
[2018-11-27 00:29] LABS: ABG HCO3 21 mmol/L (23-28); ABG PCO2 40 mmHg (41-51); ABG PH 7.33 (7.31-7.41); ABG PO2 73 mmHg (80-105)
[2018-11-27] MEDS ORDERED: SODIUM CHLORIDE 0.9% 1000ML 1,000 ML IV SCH ×2 (00:30)
[2018-11-27 00:46] LABS: BACTERIA,URINE FEW /HPF; EPITHELIAL CELLS,URINE RARE /LPF; WBC,URINE (MAN) 0-5 /HPF (0-5)
--- NOTE | 2018-11-27 01:00 | NUR ---
patient received to room 297 via stretcher from the er. vss. patient c/o severe abd pain 10/10 upon arrival to room. to be called re: abd pain. ivf infusing to right forearm #20 gauge without difficulty. admit assessment/history complete. patient to remain npo per orders. patient verbalizes understanding of this. call werner placed within reach. patient instructed to call for assistance when needed.
[2018-11-27] MEDS ORDERED: ONDANSETRON HCL INJ 2MG/ML 2ML 2 MG/ML VIAL IV PRN (01:45)
[2018-11-27] MEDS ORDERED: HYDROMORPHONE 2MG/ML 2 MG/ML ML IV ONE (01:45)
--- NOTE | 2018-11-27 02:19 | NUR ---
blood sugar 234 at this time.
[2018-11-27] MEDS: ONDANSETRON HCL INJ 2MG/ML 2ML 2 MG/ML VIAL IV PRN ×3 (02:23→22:30)
--- NOTE | 2018-11-27 02:23 | NUR ---
patient medicated with dilaudid 1.5mg and zofran 4mg ivp for c/o abd pain 10/10 per orders at this time.
--- NOTE | 2018-11-27 03:00 | NUR ---
patient appears to be resting quietly. no c/o pain noted at this time.
[2018-11-27] MEDS: SODIUM CHLORIDE 0.9% 1000ML 1,000 ML IV SCH ×3 (03:30→21:04)
--- NOTE | 2018-11-27 04:00 | NUR ---
am labs drawn at this time per orders.
[2018-11-27 04:14] LABS: BASOPHILS # (AUTO) 0.1 (0.0-0.1); BASOPHILS % 0.7 % (0.0-1.0); EOSINOPHILS # (AUTO) 0.3 (0.0-0.4); EOSINOPHILS % 2.6 % (0.0-6.0); HEMATOCRIT 39.7 % (38.2-49.6); HEMOGLOBIN 13.4 g/dL (14.0-18.0); LYMPHOCYTES # (AUTO) 3.4 (1.0-3.2); MEAN CORPUSCULAR HEMOGLOBIN 31.1 pg (28-32); MEAN CORPUSCULAR HGB CONC 33.8 g/dL (31-35); MEAN CORPUSCULAR VOLUME 92.1 fL (81-99); MONOCYTES # (AUTO) 0.8 (0.2-0.8); MONOCYTES % 8.6 % (4.4-11.3); NEUTROPHILS # (AUTO) 5.1 (2.1-6.9); NEUTROPHILS % 52.7 % (38.7-80.0); PLATELET COUNT 184 x10e3/uL (140-360); RED BLOOD COUNT 4.31 x10e6/uL (4.3-5.7); RED CELL DISTRIBUTION WIDTH 12.4 % (11.7-14.4)
[2018-11-27 04:34] LABS: ALANINE AMINOTRANSFERASE 17 IU/L (0-55); ALBUMIN 3.1 g/dL (3.5-5.0); ALBUMIN/GLOBULIN RATIO 1.2 (0.8-2.0); ALKALINE PHOSPHATASE 32 IU/L (40-150); ANION GAP 11.7 mmol/L (8-16); BLOOD UREA NITROGEN 10 mg/dL (7-26); BUN/CREATININE RATIO 12 (6-25); CALCIUM 8.6 mg/dL (8.4-10.2); CARBON DIOXIDE 22 mmol/L (22-29); CHLORIDE 106 mmol/L (98-107); CREATININE, SERUM 0.82 mg/dL (0.72-1.25); EST GLOMERULAR FILTRATION RATE > 60 ML/MIN (60-); GLUCOSE 216 mg/dL (74-118); MAGNESIUM 1.6 MG/DL (1.3-2.1); PHOSPHORUS 3.7 MG/DL (2.3-4.7); POTASSIUM 3.7 mmol/L (3.5-5.1); SODIUM 136 mmol/L (136-145)
[2018-11-27] MEDS: HYDROMORPHONE 1MG/1ML INJ IV PRN ×5 (06:24→22:30)
--- NOTE | 2018-11-27 06:24 | NUR ---
patient medicated with dilaudid 1mg and zofran 4mg ivp for c/o abd pain 09/28 at this time per patients request.
[2018-11-27] MEDS ORDERED: DEXTROSE 50% SYRINGE 50 ML IV PRN (06:45)
[2018-11-27] MEDS ORDERED: SODIUM CHLORIDE 0.9% 50ML 50 ML ONE (06:46)
[2018-11-27] MEDS ORDERED: IOPAMIDOL 370 MG/ML 200 ML INFUS..BTL INJ ONE (06:46)
--- NOTE | 2018-11-27 07:00 | NUR ---
received am report from nurse and morning rounds done. pt is alert and ambulating to the bathroom. no s/s of distress. pt is complaining of pain and requesting pain medicine. call light within reach and pt instructed to call for help.
[2018-11-27] MEDS ORDERED: INSULIN LISPRO 100 UNIT/1 ML 3ML VIAL SQ SCH (08:00)
[2018-11-27] MEDS: HYDROCODONE/APAP 5MG-325MG TAB PO PRN ×3 (08:07→21:00)
[2018-11-27] MEDS: LISINOPRIL 2.5 MG TAB PO SCH (08:56)
[2018-11-27] MEDS: ATORVASTATIN 10 MG TAB PO SCH (08:58)
[2018-11-27] MEDS: PANTOPRAZOLE 40 MG 10ML VIAL IV SCH ×2 (08:59→09:00)
[2018-11-27] MEDS: METOCLOPRAMIDE HCL 10 MG/2ML VIAL IV SCH ×4 (08:59→21:00)
[2018-11-27] MEDS: INSULIN LISPRO 100 UNIT/1 ML 3ML VIAL SQ SCH ×4 (09:00→20:58)
[2018-11-27] MEDS ORDERED: NON-FORMULARY MEDICATION (Lisinopril 5 MG) PO SCH (09:00)
--- NOTE | 2018-11-27 09:30 | Diagnostic Imaging Report ---
EXAM: CT Abdomen and Pelvis with contrast INDICATION: Abdominal Pain COMPARISON: None. TECHNIQUE: Abdomen and pelvis were scanned utilizing a multidetector helical scanner from the lung base to the pubic symphysis after administration of IV contrast. Coronal and sagittal reformations were obtained. Routine protocol was performed. Scan was performed when during portal venous phase. IV CONTRAST: 100 cc Isovue 370 ORAL CONTRAST: Water COMPLICATIONS: None RADIATION DOSE: Total DLP: 772.2 mGy*cm Estimated effective dose: (DLP x 0.015 x size factor) mSv CTDIvol has been reviewed. It is below the limits set by the Radiation Protocol Committee (RPC). FINDINGS: LINES and TUBES: None. LOWER THORAX: There is a 3 mm left lower lobe pulmonary nodule. HEPATOBILIARY: Diffuse mild hepatic steatosis. Enhancement in segment 4 abutting the gallbladder may represent focal fatty sparing or perfusional changes. No biliary ductal dilation. GALLBLADDER: No radio-opaque stones or sludge. No wall thickening. SPLEEN: No splenomegaly. PANCREAS: Mild peripancreatic stranding. No focal masses or ductal dilatation. ADRENALS: No adrenal nodules KIDNEYS/URETERS: Kidneys enhance symmetrically. No evidence of hydronephrosis, solid mass, or stone. GI TRACT: No evidence of wall thickening or distension. Appendix is normal. PELVIC ORGANS/BLADDER: Unremarkable. LYMPH NODES: Small peripancreatic lymph nodes, likely reactive. There is a 1.2 cm partially calcified lymph node in the right pelvis. VESSELS: Scattered mild atherosclerotic changes. PERITONEUM / RETROPERITONEUM: No free air or fluid. BONES AND SOFT TISSUES: Unremarkable. CONCLUSION: Mild peripancreatic stranding, which is suggestive of acute pancreatitis. No evidence of pancreatic hypoenhancement or fluid collection. Diffuse hepatic steatosis. Small 3 mm left lower lobe pulmonary nodule, likely infectious or inflammatory and requiring no further follow-up in a low risk patient. If the patient has a risk factor for malignancy, an optional follow-up chest CT may be considered in 12 months. Signed by: Dr. Martinez Gao MD on 11/27/2018 9:26 AM
--- NOTE | 2018-11-27 12:40 | Diagnostic Imaging Report ---
EXAM: US ABDOMEN COMPLETE INDICATION: Abdominal pain. COMPARISON: CT abdomen/pelvis 11/27/2018. TECHNIQUE: Transverse and longitudinal edmondson scale and color doppler sonographic images of the abdomen were obtained. FINDINGS: LIVER 16.2 cm in the right midclavicular line. Increased echogenicity of the liver with normal contour, no masses. SPLEEN 11.3 cm in maximum diameter. Normal echogenicity, no masses. GALLBLADDER No gallbladder wall thickening, distension, stone, or pericholecystic fluid. Negative reported sonographic Carreon's sign. BILE DUCTS No intra nor extra-hepatic biliary dilation. Common bile duct measures 0.4 cm PANCREAS: Limited evaluation due to overlying bowel gas. RIGHT KIDNEY: 12.6 cm Echogenicity: Normal Collecting System: No hydronephrosis Stones: None Cyst/Mass: None LEFT KIDNEY: 13.1 cm Echogenicity: Normal Collecting System: No hydronephrosis Stones: None Cyst/Mass: None VESSELS: Aorta: Limited evaluation due to overlying bowel gas. Inferior Vena Cava: Visualized portions are normal Main Portal Vein: 1.2 cm, normal size with hepatopetal flow. FREE FLUID: None IMPRESSION: Hepatomegaly with hepatic steatosis. The pancreas is not well evaluated due to overlying bowel gas. Please refer to the same day abdominal CT for further details. Signed by: Dr. Martinez Gao MD on 11/27/2018 12:37 PM
--- NOTE | 2018-11-27 19:00 | NUR ---
patient received awake, alert, lying quietly in bed. no c/o pain noted at this time. ivf continue to infuse without difficulty. pm assessment complete. patient instructed to call for assistance when needed.
--- NOTE | 2018-11-27 21:00 | NUR ---
Patient medicated with norco 5/325mg po for c/o abd pain 8/10 at this time per patients request.
--- NOTE | 2018-11-27 22:30 | NUR ---
patient medicated with dilaudid 1mg and zofran 4mg ivp for c/o abd pain 10/29 at this time per patients request.
[2018-11-28] VITALS: BP 156/92
--- NOTE | 2018-11-28 | NUR ---
patient sitting up in recliner. ivf continue to infuse without difficulty. no c/o pain noted at this time.
[2018-11-28] MEDS: HYDROCODONE/APAP 5MG-325MG TAB PO PRN ×4 (01:22→23:00)
--- NOTE | 2018-11-28 01:22 | NUR ---
patient medicated with norco 5/325mg po for c/o right upper abd pain 9/10 at this time per patients request.
[2018-11-28] MEDS: SODIUM CHLORIDE 0.9% 1000ML 1,000 ML IV SCH ×3 (02:34→18:55)
[2018-11-28] MEDS: ONDANSETRON HCL INJ 2MG/ML 2ML 2 MG/ML VIAL IV PRN ×2 (02:39→06:48)
[2018-11-28] MEDS: HYDROMORPHONE 1MG/1ML INJ IV PRN ×4 (02:39→18:55)
--- NOTE | 2018-11-28 02:39 | NUR ---
patient medicated with dilaudid 1mg and zofran 4mg ivp for right upper abd pain 8/10 at this time per patients request.
[2018-11-28 02:50] LABS: BASOPHILS # (AUTO) 0.1 (0.0-0.1); BASOPHILS % 0.8 % (0.0-1.0); EOSINOPHILS # (AUTO) 0.2 (0.0-0.4); EOSINOPHILS % 1.5 % (0.0-6.0); HEMATOCRIT 38.1 % (38.2-49.6); HEMOGLOBIN 13.2 g/dL (14.0-18.0); LYMPHOCYTES # (AUTO) 2.7 (1.0-3.2); LYMPHOCYTES % 25.1 % (18.0-39.1); MEAN CORPUSCULAR HEMOGLOBIN 31.4 pg (28-32); MEAN CORPUSCULAR HGB CONC 34.6 g/dL (31-35); MEAN CORPUSCULAR VOLUME 90.5 fL (81-99); MONOCYTES # (AUTO) 0.8 (0.2-0.8); MONOCYTES % 7.6 % (4.4-11.3); NEUTROPHILS % 64.7 % (38.7-80.0); PLATELET COUNT 187 x10e3/uL (140-360); RED BLOOD COUNT 4.21 x10e6/uL (4.3-5.7); RED CELL DISTRIBUTION WIDTH 12.5 % (11.7-14.4)
[2018-11-28 03:04] LABS: ANION GAP 15.5 mmol/L (8-16); BLOOD UREA NITROGEN 5 mg/dL (7-26); BUN/CREATININE RATIO 7 (6-25); CALCIUM 9.2 mg/dL (8.4-10.2); CARBON DIOXIDE 19 mmol/L (22-29); CHLORIDE 107 mmol/L (98-107); CREATININE, SERUM 0.75 mg/dL (0.72-1.25); EST GLOMERULAR FILTRATION RATE > 60 ML/MIN (60-); GLUCOSE 173 mg/dL (74-118); POTASSIUM 3.5 mmol/L (3.5-5.1); SODIUM 138 mmol/L (136-145)
[2018-11-28 03:19] LABS: LIPASE 74 U/L (8-78)
[2018-11-28 04:00] VITALS: BP 133/79
[2018-11-28] MEDS ORDERED: HYDROMORPHONE 2MG/ML 2 MG/ML ML ONE (06:47)
--- NOTE | 2018-11-28 06:48 | NUR ---
Patient medicated with dilaudid 2mg and zofran 4mg ivp for c/o right upper abd pain 10/10 at this time per patients request.
--- NOTE | 2018-11-28 07:00 | NUR ---
rounds made and report given to Rodney ABEL.
[2018-11-28] MEDS: INSULIN LISPRO 100 UNIT/1 ML 3ML VIAL SQ SCH ×4 (07:30→21:00)
[2018-11-28 07:49] VITALS: BP 147/96
[2018-11-28] MEDS: PANTOPRAZOLE 40 MG 10ML VIAL IV SCH (08:54)
[2018-11-28] MEDS: METOCLOPRAMIDE HCL 10 MG/2ML VIAL IV SCH ×4 (08:54→21:00)
[2018-11-28] MEDS: SUCRALFATE 1 GM/10 ML SUSP PO SCH ×4 (08:54→21:00)
[2018-11-28 08:55] VITALS: BP 147/96
[2018-11-28] MEDS: ATORVASTATIN 10 MG TAB PO SCH (08:55)
[2018-11-28] MEDS: LISINOPRIL 2.5 MG TAB PO SCH (08:55)
[2018-11-28] MEDS ORDERED: HYDROMORPHONE 1MG/1ML INJ IV PRN (09:45)
[2018-11-28 15:23] VITALS: BP 129/88
--- NOTE | 2018-11-28 19:34 | NUR ---
Received change of shift report from AM nurse. Walking rounds completed.
--- NOTE | 2018-11-28 19:35 | NUR ---
Patient insist on eating at NPO status. Called Dr Beckman to advise per patient request.
[2018-11-28 20:00] VITALS: BP 159/104
[2018-11-29] VITALS (9 sets, daily range): BP systolic 136–181; BP diastolic 80–109
[2018-11-29] MEDS: HYDROMORPHONE 1MG/1ML INJ IV PRN ×4 (00:50→18:04)
--- NOTE | 2018-11-29 01:00 | NUR ---
Dr Beckman on the floor. Patient is allowed to eat clear liquid meals until after breakfast.
[2018-11-29] MEDS: SODIUM CHLORIDE 0.9% 1000ML 1,000 ML IV SCH ×3 (02:22→18:02)
[2018-11-29 06:11] LABS: BASOPHILS # (AUTO) 0.1 (0.0-0.1); BASOPHILS % 0.9 % (0.0-1.0); EOSINOPHILS # (AUTO) 0.2 (0.0-0.4); EOSINOPHILS % 2.2 % (0.0-6.0); HEMATOCRIT 39.8 % (38.2-49.6); HEMOGLOBIN 13.6 g/dL (14.0-18.0); LYMPHOCYTES # (AUTO) 3.4 (1.0-3.2); LYMPHOCYTES % 39.9 % (18.0-39.1); MEAN CORPUSCULAR HEMOGLOBIN 31.1 pg (28-32); MEAN CORPUSCULAR HGB CONC 34.2 g/dL (31-35); MEAN CORPUSCULAR VOLUME 91.1 fL (81-99); MONOCYTES # (AUTO) 0.7 (0.2-0.8); MONOCYTES % 8.3 % (4.4-11.3); NEUTROPHILS # (AUTO) 4.1 (2.1-6.9); NEUTROPHILS % 48.3 % (38.7-80.0); PLATELET COUNT 201 x10e3/uL (140-360); RED BLOOD COUNT 4.37 x10e6/uL (4.3-5.7); RED CELL DISTRIBUTION WIDTH 12.4 % (11.7-14.4)
[2018-11-29 06:47] LABS: ANION GAP 14.7 mmol/L (8-16); BLOOD UREA NITROGEN < 5 mg/dL (7-26); CALCIUM 9.5 mg/dL (8.4-10.2); CARBON DIOXIDE 24 mmol/L (22-29); CHLORIDE 104 mmol/L (98-107); EST GLOMERULAR FILTRATION RATE > 60 ML/MIN (60-); GLUCOSE 179 mg/dL (74-118); LIPASE 27 U/L (8-78); POTASSIUM 3.7 mmol/L (3.5-5.1); SODIUM 139 mmol/L (136-145)
[2018-11-29 06:48] LABS: BUN/CREATININE RATIO 6 (6-25)
[2018-11-29] MEDS: METOCLOPRAMIDE HCL 10 MG/2ML VIAL IV SCH ×4 (08:31→21:00)
[2018-11-29] MEDS: SUCRALFATE 1 GM/10 ML SUSP PO SCH ×4 (08:31→21:00)
[2018-11-29] MEDS: ATORVASTATIN 10 MG TAB PO SCH (08:32)
[2018-11-29] MEDS: LISINOPRIL 2.5 MG TAB PO SCH (08:32)
[2018-11-29] MEDS: PANTOPRAZOLE 40 MG 10ML VIAL IV SCH (08:32)
[2018-11-29] MEDS: INSULIN LISPRO 100 UNIT/1 ML 3ML VIAL SQ SCH ×4 (08:36→21:00)
[2018-11-29] MEDS: HYDROCODONE/APAP 5MG-325MG TAB PO PRN ×2 (08:46→21:52)
[2018-11-29] MEDS ORDERED: PROPOFOL IV EMULSION 10 MG/ML 50 ML VIAL ONE (14:19)
[2018-11-29] MEDS ORDERED: MIDAZOLAM HCL 5MG/ML 2ML VIAL ONE (14:50)
[2018-11-29] MEDS ORDERED: FENTANYL CITRATE/PF 100MCG/2 ML INJ ONE (14:50)
--- NOTE | 2018-11-29 15:30 | NUR ---
Pt going to OR at this time for EGD. Pt is aox4 and able to verbalize needs. Denies any pain at this time. 0 s/s of distress at time of transfer.
--- NOTE | 2018-11-29 17:00 | NUR ---
Pt returned from EGD at this time. Pt is aox4 and able to verbalize needs. Denies any pain at this time. EGD showed hiatal hernia, gastritis, and samples were taken for barrets esophagus. New IV started in OR right AC 20g.
--- NOTE | 2018-11-29 18:12 | Operative Report ---
DATE OF PROCEDURE: 11/29/2018 SURGEON: Oh Beckman MD PROCEDURE: Esophagogastroduodenoscopy with biopsies. INDICATIONS FOR EGD: Upper abdominal pain, nausea. MEDICATIONS: The patient was done under MAC, please see anesthesiologist's note. PROCEDURE IN DETAIL: With the patient in left lateral decubitus position, a flexible fiberoptic Olympus gastroscope was introduced into the esophagus under direct visualization without any difficulty. There was some patchy erythema noted in distal esophagus. A minute tongue of velvety red mucosa was noted to extend proximally from the GE junction and biopsies were obtained to rule out Borrero. The scope was then advanced with ease into the stomach traversing a small sliding hiatal hernia. Mucosa overlying the antrum and the body revealed some patchy intense erythema, mild to moderate edema. Biopsies were obtained, sent to stain for H pylori. The pylorus was of normal contour and shape, it was intubated with ease and the scope was advanced all the way to the second portion of the duodenum. The scope was then withdrawn slowly and biopsies were obtained from the proximal second portion and duodenal bulb to rule out sprue. The scope was then withdrawn back into the stomach and retroflexed. Mucosa overlying the fundus and cardia appeared to be within normal limits. The scope was then straightened out, it was subsequently withdrawn. The patient tolerated the procedure well. IMPRESSION: 1. Distal esophagitis. 2. Rule out Borrero esophagus. 3. Small sliding hiatal hernia. 4. Gastritis, biopsied. Biopsies sent to stain for Helicobacter pylori. 5. Rule out sprue. PLAN: Follow up histology. Continue current therapy. Initiate full liquid diet. MD FILIPPO Marie/MARY ALICE /[id number] cc: Yogesh Guerra MD
--- NOTE | 2018-11-29 19:00 | NUR ---
patient received awake, alert, lying quietly in bed. no c/o pain noted. ivf continue to infuse without difficulty. pm assessment complete. patient instructed to call for assistance when needed.
[2018-11-29] MEDS ORDERED: DEXTROSE 50% SYRINGE 50 ML IV PRN ×2 (20:15→21:00)
[2018-11-29] MEDS ORDERED: FUROSEMIDE INJ 10 MG/ML 4 ML VIAL IV NR (20:15)
[2018-11-29] MEDS ORDERED: INSULIN REGULAR, HUMAN 100 UNIT/1 ML 3ML VIAL SQ SCH (21:00)
[2018-11-29] MEDS: HYDROCHLOROTHIAZIDE 25 MG TAB PO SCH (21:00)
--- NOTE | 2018-11-29 21:00 | NUR ---
Telemetry d/c'd per orders.
--- NOTE | 2018-11-29 21:52 | NUR ---
patient medicated with norco 5/325mg po for c/o right upper abd pain 6/10 at this time per patient request.
[2018-11-30] VITALS (8 sets, daily range): BP systolic 112–170; BP diastolic 73–109
[2018-11-30] MEDS: HYDROMORPHONE 1MG/1ML INJ IV PRN ×4 (01:20→19:39)
[2018-11-30] MEDS: ONDANSETRON HCL INJ 2MG/ML 2ML 2 MG/ML VIAL IV PRN ×4 (01:20→19:39)
--- NOTE | 2018-11-30 01:20 | NUR ---
patient medicated with dilaudid 2mg and zofran 4mg ivp for c/o right upper abd pain 10/10 at this time per patients request.
[2018-11-30] MEDS: HYDROCODONE/APAP 5MG-325MG TAB PO PRN ×4 (04:53→23:02)
--- NOTE | 2018-11-30 04:53 | NUR ---
patient medicated with norco 5/325mg po for c/o right upper abd pain 6/10 at this time per patients request.
[2018-11-30 06:42] LABS: BASOPHILS # (AUTO) 0.1 (0.0-0.1); EOSINOPHILS # (AUTO) 0.2 (0.0-0.4); EOSINOPHILS % 2.3 % (0.0-6.0); HEMATOCRIT 41.6 % (38.2-49.6); HEMOGLOBIN 14.5 g/dL (14.0-18.0); LYMPHOCYTES # (AUTO) 2.9 (1.0-3.2); LYMPHOCYTES % 37.6 % (18.0-39.1); MEAN CORPUSCULAR HGB CONC 34.9 g/dL (31-35); MEAN CORPUSCULAR VOLUME 91.8 fL (81-99); MONOCYTES # (AUTO) 0.7 (0.2-0.8); MONOCYTES % 8.7 % (4.4-11.3); NEUTROPHILS # (AUTO) 3.9 (2.1-6.9); PLATELET COUNT 237 x10e3/uL (140-360); RED BLOOD COUNT 4.53 x10e6/uL (4.3-5.7); RED CELL DISTRIBUTION WIDTH 12.4 % (11.7-14.4)
[2018-11-30 07:04] LABS: ANION GAP 14.6 mmol/L (8-16); BLOOD UREA NITROGEN 5 mg/dL (7-26); BUN/CREATININE RATIO 5 (6-25); CALCIUM 10.1 mg/dL (8.4-10.2); CARBON DIOXIDE 27 mmol/L (22-29); CHLORIDE 101 mmol/L (98-107); CREATININE, SERUM 0.99 mg/dL (0.72-1.25); EST GLOMERULAR FILTRATION RATE > 60 ML/MIN (60-); GLUCOSE 142 mg/dL (74-118); MAGNESIUM 1.7 MG/DL (1.3-2.1); POTASSIUM 3.6 mmol/L (3.5-5.1); SODIUM 139 mmol/L (136-145)
--- NOTE | 2018-11-30 07:09 | NUR ---
patient medicated with dilaudid 2mg and zofran 4mg ivp for c/o right upper abd pain /10 at this time per patients request.
--- NOTE | 2018-11-30 07:13 | NUR ---
patient up in chair in room. patient instructed to call for assistance when needed.
--- NOTE | 2018-11-30 07:40 | NUR ---
PATIENT IS AWAKE AND IN STABLE CONDITION WITH NO S/S OF RESPIRATORY DISTRESS. PATIENT C/O ABD PAIN 5/10. CALL LIGHT IS WITHIN REACH, PATIENT INSTRUCTED TO CALL FOR ASSISTANCE NEEDED.
[2018-11-30] MEDS: D AMPHETAMINE PO SCH ×2 (09:00→17:00)
[2018-11-30] MEDS: SUCRALFATE 1 GM/10 ML SUSP PO SCH ×4 (09:13→21:54)
[2018-11-30] MEDS: HYDROCHLOROTHIAZIDE 25 MG TAB PO SCH (09:14)
[2018-11-30] MEDS: LISINOPRIL 2.5 MG TAB PO SCH (09:15)
[2018-11-30] MEDS: ATORVASTATIN 10 MG TAB PO SCH (09:15)
[2018-11-30] MEDS: PANTOPRAZOLE 40 MG 10ML VIAL IV SCH (09:19)
[2018-11-30] MEDS: METOCLOPRAMIDE HCL 10 MG/2ML VIAL IV SCH ×4 (09:19→21:54)
[2018-11-30] MEDS: INSULIN LISPRO 100 UNIT/1 ML 3ML VIAL SQ SCH ×4 (10:25→21:00)
[2018-11-30] MEDS: CHLORTHALIDONE 25 MG TAB PO SCH (12:28)
[2018-11-30] MEDS: ATENOLOL 100 MG TAB PO SCH (12:28)
--- NOTE | 2018-11-30 19:25 | NUR ---
PATIENT IS SITTING IN THE RECLINER- IN STABLE CONDITION WITH NO S/S OF RESPIRATORY DISTRESS. FAMILY PRESENT IN ROOM. CALL LIGHT IS WITHIN REACH, PATIENT INSTRUCTED TO CALL FOR ASSISTANCE NEEDED. REPORT GIVEN TO ONCOMING NURSE.
--- NOTE | 2018-11-30 19:52 | NUR ---
PT IS SITTING IN THE RECLINER WITH FAMILY AT BEDSIDE. RESPIRATION IS EVEN AND UNEVEN LABORED, NO DISTRESS NOTED. BED IN IN THE LOWEST POSITION, LOCKED, AND CALL LIGHT WITHIN REACH. WILL CONTINUE TO MONITOR.
[2018-11-30] MEDS ORDERED: ACETAMIN/BUTALBITAL/CAFFEINE TAB PO PRN (21:45)
[2018-11-30] MEDS ORDERED: ACETAMINOPHEN 325 MG TAB PO PRN (21:45)
[2018-11-30] MEDS ORDERED: HYDRALAZINE HCL 20 MG/ML VIAL IV PRN (21:45)
[2018-12-01] VITALS: BP 131/83
[2018-12-01] MEDS: ONDANSETRON HCL INJ 2MG/ML 2ML 2 MG/ML VIAL IV PRN ×2 (03:56→08:06)
[2018-12-01] MEDS: HYDROMORPHONE 1MG/1ML INJ IV PRN ×2 (03:56→08:06)
[2018-12-01 04:12] VITALS: BP 144/98
--- NOTE | 2018-12-01 07:00 | NUR ---
PATIENT IS AWAKE, SITTING IN THE RECLINER, AND IS IN STABLE CONDITION WITH NO S/S OF RESPIRATORY DISTRESS. PATIENT C/O ABD PAIN. CALL LIGHT IS WITHIN REACH, PATIENT INSTRUCTED TO CALL FOR ASSISTANCE NEEDED.
--- NOTE | 2018-12-01 07:25 | NUR ---
ROUNDED WITH DR. FAN- WOUND CARE COMPLETED. PATIENT'S IS TO BRING HIS POST SURGICAL SHOES FROM HOME AND THEN THE PATIENT CAN AMBULATE PER DR. FAN. Addendum: 12/01/18 at 0925 by Ludy Carney RN WRONG ENTRY
[2018-12-01] MEDS: INSULIN LISPRO 100 UNIT/1 ML 3ML VIAL SQ SCH ×2 (07:30→11:30)
[2018-12-01] MEDS: SUCRALFATE 1 GM/10 ML SUSP PO SCH ×2 (07:58→12:00)
[2018-12-01] MEDS: HYDROCHLOROTHIAZIDE 25 MG TAB PO SCH (07:59)
[2018-12-01 08:00] VITALS: BP 157/100
[2018-12-01] MEDS: ATORVASTATIN 10 MG TAB PO SCH (08:04)
[2018-12-01] MEDS: ATENOLOL 100 MG TAB PO SCH (08:05)
[2018-12-01] MEDS: CHLORTHALIDONE 25 MG TAB PO SCH (08:05)
[2018-12-01] MEDS: LISINOPRIL 2.5 MG TAB PO SCH (08:06)
[2018-12-01] MEDS: METOCLOPRAMIDE HCL 10 MG/2ML VIAL IV SCH ×2 (08:06→12:00)
[2018-12-01] MEDS: PANTOPRAZOLE 40 MG 10ML VIAL IV SCH (08:06)
[2018-12-01] MEDS: D AMPHETAMINE PO SCH (08:06)
[2018-12-01 09:24] VITALS: BP 157/100
[2018-12-01] MEDS: HYDROCODONE/APAP 5MG-325MG TAB PO PRN (11:59)
[2018-12-01 12:00] VITALS: BP 116/81
[2018-12-01] MEDS ORDERED: PANTOPRAZOLE SO40 MG PO (12:40)
[2018-12-01] MEDS ORDERED: ZOFRAN4 MG PO (12:40)
[2018-12-01] MEDS ORDERED: ONDANSETRON HCL 4 MG ORAL DISINTEGRATING TAB PO PRN (13:30)
--- NOTE | 2018-12-01 13:41 | NUR ---
PATIENT DISCHARGE HOME- PATIENT OFF THE UNIT AT 1336 PER AMBULATION ACCOMPANIED BY RN TO THE FRONT LOBBY. PATIENT IS IN STABLE CONDITION WITH NO S/S OF RESPIRATORY DISTRESS. NO PAIN VOICED. IV REMOVED AT 1308 WITH TIP INTACT. DISCHARGE TEACHING, INSTRUCTIONS, AND MEDICATIONS GIVEN TO THE PATIENT. ALL PERSONAL ITEMS TAKEN WITH THE PATIENT.
[2018-12-02] MEDS ORDERED: PANTOPRAZOLE SOD 40 MG TABEC PO SCH (07:30)
--- NOTE | 2018-12-03 05:37 | Discharge Summary ---
ADMISSION DIAGNOSES: Diabetic ketoacidosis, hypertension, hyperlipidemia, gastroparesis and pancreatitis. DISCHARGE DIAGNOSES: Diabetic ketoacidosis, hypertension, hyperlipidemia, gastroparesis and pancreatitis, gastritis and esophagitis. HISTORY: Type 2 diabetes, hypertension, gastroparesis, benign mass of the left lung and hyperlipidemia. SURGICAL HISTORY: Noncontributory. FAMILY HISTORY: Noncontributory. SOCIAL HISTORY: The patient admits to occasional alcohol and tobacco use. HOSPITAL COURSE: A 48-year-old male, was sent from the ER in [place] due to pancreatitis. Outside records were initially unavailable. Lipase was within normal limits in our ER and blood sugar was 433 with an anion gap of 16.3. He complains of epigastric and right upper quadrant pain that began 3 days ago and continued to worsen. He has associated nausea, but denies fever and vomiting. Pain is worse with meal. On admission, ultrasound of the abdomen showed hepatomegaly with hepatic steatosis. CT of the abdomen showed mild peripancreatic stranding suggestive of acute pancreatitis. Small 3 mm left lower lobe pulmonary nodule. Lipase remained within normal limits. So, GI was consulted due to the continued pain. An EGD was done that showed distal esophagitis, small sliding hiatal hernia and gastritis. The patient was given prescriptions for Protonix and Zofran and is able to tolerate food and the abdominal pain is improving. He will discharge home and follow up with primary care and Dr. Beckman in 1 to 2 weeks. The patient understands discharge instructions and agrees to plan. Vital signs stable, patient afebrile. Dictated by Ingrid Jamison NP MD SIMONE Watts/MODL /[id number]
== END 2018-12-01 13:56 | disposition home or self-care (01) | DRG 438 ==
LOC: ER 21:24 → ERHOLD 22:36 → MED/SURG3 11-27 00:51 → OBSVTOIN 11-27 07:36
PROVIDERS: ADMIT Internal Medicine; ATTEND Internal Medicine
PROC: 0DB68ZX Excision of Stomach, Via Natural or Artificial Opening Endoscopic, Diagnostic (ICD-10-PCS; 2018-11-29)
PROC: 0DB48ZX Excision of Esophagogastric Junction, Via Natural or Artificial Opening Endoscopic, Diagnostic (ICD-10-PCS; 2018-11-29)
PROC: 0DB98ZX Excision of Duodenum, Via Natural or Artificial Opening Endoscopic, Diagnostic (ICD-10-PCS; principal; 2018-11-29 16:18)
DX: K85.20 Alcohol induced acute pancreatitis without necrosis or infection (principal); E11.10 Type 2 diabetes mellitus with ketoacidosis without coma; Z88.5 Allergy status to narcotic agent; Z88.0 Allergy status to penicillin; I10 Essential (primary) hypertension; J44.9 Chronic obstructive pulmonary disease, unspecified; Z86.73 Personal history of transient ischemic attack (TIA), and cerebral infarction without residual deficits; E11.43 Type 2 diabetes mellitus with diabetic autonomic (poly)neuropathy; K31.84 Gastroparesis; R91.8 Other nonspecific abnormal finding of lung field; E78.5 Hyperlipidemia, unspecified; K20.9 Esophagitis, unspecified; K44.9 Diaphragmatic hernia without obstruction or gangrene; K29.70 Gastritis, unspecified, without bleeding; F10.10 Alcohol abuse, uncomplicated; I25.10 Atherosclerotic heart disease of native coronary artery without angina pectoris; R51 Headache; Z72.0 Tobacco use; Z79.4 Long term (current) use of insulin; I16.0 Hypertensive urgency
CPT/HCPCS: 36415; 43239; 74177; 76700; 80048; 80053; 81001; 82550; 82553; 82805; 82948; 83036; 83605; 83690; 83735; 84100; 84484; 85025; 88305; 88312; 99284; G0378; J0692; J1170; J1817; J2250; J2270; J2405; J2765; J3010; J7030; Q9967

== ENCOUNTER 2018-12-04 13:05 | Inpatient (IN) | payer BC ==
[~2018-12-04] VITALS: Ht 185.4 cm; Wt 105.9 kg
[~2018-12-04 13:05] MED LIST changes: +ATORVASTATIN CA10 MG PO; +D-AMPHETAMINE PO; +HUMALOG; +JANUVIA100 MG PO; +LISINOPRIL5 MG PO; +METFORMIN HCL1000 MG PO; +PANTOPRAZOLE SO40 MG PO; +TESTOSTERO200 MG/1 M IM; +TRESIBA SC; +ZOFRAN4 MG PO
--- OUTSIDE RECORDS SUMMARY | 2018-12-04 13:08 | XMS REPORT | Clinical Summary ---
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
[2018-12-04 13:49] LABS: BASOPHILS # (AUTO) 0.1 (0.0-0.1); BILIRUBIN,URINE MODERATE (NEGATIVE); CLARITY,URINE SL CLOUDY (CLEAR); COLOR,URINE YELLOW (YELLOW); EOSINOPHILS # (AUTO) 0.2 (0.0-0.4); EOSINOPHILS % 1.6 % (0.0-6.0); HEMOGLOBIN 16.7 g/dL (14.0-18.0); KETONES,URINE TRACE (NEGATIVE); LEUKOCYTE ESTERASE ,URINE NEGATIVE (NEGATIVE); LYMPHOCYTES # (AUTO) 3.5 (1.0-3.2); LYMPHOCYTES % 31.1 % (18.0-39.1); MEAN CORPUSCULAR HEMOGLOBIN 30.9 pg (28-32); MEAN CORPUSCULAR HGB CONC 34.8 g/dL (31-35); MEAN CORPUSCULAR VOLUME 88.7 fL (81-99); MONOCYTES % 8.8 % (4.4-11.3); NEUTROPHILS # (AUTO) 6.4 (2.1-6.9); NEUTROPHILS % 57.1 % (38.7-80.0); NITRITE,URINE NEGATIVE (NEGATIVE); PLATELET COUNT 301 x10e3/uL (140-360); PROTEIN,URINE DIPSTICK TRACE (NEGATIVE); RED BLOOD COUNT 5.41 x10e6/uL (4.3-5.7); RED CELL DISTRIBUTION WIDTH 12.2 % (11.7-14.4); URINE UROBILINOGEN 0.2 mg/dL (0.2 - 1)
[2018-12-04] MEDS ORDERED: SODIUM CHLORIDE 0.9% 1000ML 1,000 ML IV STA (13:51)
--- NOTE | 2018-12-04 13:56 | NUR ---
per dr catalan order normal saline 100 ml/hr, 40 mg iv protonix, 20 mg iv reglan, medium sliding scale, clear liquid diet as tolerated and consult dr katya bobby; orders repeated back and verified
[2018-12-04 13:57] LABS: BACTERIA,URINE FEW /HPF; EPITHELIAL CELLS,URINE FEW /LPF; RBC,URINE 0-5 /HPF (0-5); WBC,URINE (MAN) 0-5 /HPF (0-5)
[2018-12-04] MEDS ORDERED: DEXTROSE 50% SYRINGE 50 ML IV PRN ×2 (14:00→15:45)
[2018-12-04] MEDS ORDERED: SODIUM CHLORIDE 0.9% 1000ML 1,000 ML IV ONE (14:00)
[2018-12-04 14:03] LABS: AMYLASE 38 U/L (25-125); LIPASE 48 U/L (8-78)
[2018-12-04 14:05] LABS: ALANINE AMINOTRANSFERASE 30 IU/L (0-55); ALBUMIN 4.2 g/dL (3.5-5.0); ALBUMIN/GLOBULIN RATIO 1.1 (0.8-2.0); ALKALINE PHOSPHATASE 45 IU/L (40-150); ANION GAP 19.4 mmol/L (8-16); BLOOD UREA NITROGEN 16 mg/dL (7-26); BUN/CREATININE RATIO 13 (6-25); CALCIUM 10.6 mg/dL (8.4-10.2); CARBON DIOXIDE 21 mmol/L (22-29); CHLORIDE 95 mmol/L (98-107); CREATININE, SERUM 1.28 mg/dL (0.72-1.25); EST GLOMERULAR FILTRATION RATE > 60 ML/MIN (60-); POTASSIUM 4.4 mmol/L (3.5-5.1); SODIUM 131 mmol/L (136-145)
[2018-12-04 14:13] LABS: GLUCOSE 404 mg/dL (74-118)
[2018-12-04] MEDS ORDERED: PANTOPRAZOL 40MG/SOD CHL 0.9% 50 ML IV ONE (14:30)
[2018-12-04] MEDS ORDERED: HYDROMORPHONE 1MG/1ML INJ IV ONE (14:30)
[2018-12-04] MEDS ORDERED: METOCLOPRAMIDE HCL 10 MG/2ML VIAL IV ONE (14:30)
[2018-12-04] MEDS ORDERED: ONDANSETRON HCL INJ 2MG/ML 2ML 2 MG/ML VIAL IV ONE (14:30)
[2018-12-04] MEDS ORDERED: PANTOPRAZOLE 40 MG 10ML VIAL IV ONE (14:30)
[2018-12-04 14:42] LABS: ABG HCO3 22 mmol/L (23-28); ABG PCO2 38 mmHg (41-51); ABG PH 7.37 (7.31-7.41); ABG PO2 83 mmHg (80-105)
[2018-12-04] MEDS ORDERED: SODIUM CHLORIDE 0.9% 1000ML 1,000 ML IV SCH (14:45)
[2018-12-04] MEDS ORDERED: INSULIN REGULAR, HUMAN 100 UNIT/1 ML 3ML VIAL IV ONE (15:00)
[2018-12-04 15:04] LABS: INR 0.91; PROTHROMBIN TIME 12.7 seconds (11.9-14.5)
[2018-12-04] MEDS ORDERED: ONDANSETRON HCL INJ 2MG/ML 2ML 2 MG/ML VIAL IV PRN (15:45)
[2018-12-04] MEDS ORDERED: DIPHENHYDRAMINE HCL INJ 50 MG/ML VIAL IV PRN (15:45)
--- OUTSIDE RECORDS SUMMARY | 2018-12-04 15:49 | XMS REPORT | Clinical Summary ---
Author Author [facility] Organization [facility] Address Unknown Phone Unavailable Care Team Providers Care Sanitary Aide Name Role Phone Vivek Pino MD PCP [...] Advance Directives For more information, please contact: [phone] Explanation Type Date Recorded Advance Directives, Living Will and Medical Power of Digital Analyst
[2018-12-04] MEDS: SODIUM CHLORIDE 0.9% 1000ML 1,000 ML IV SCH ×2 (16:15→20:49)
[2018-12-04] MEDS: INSULIN REGULAR, HUMAN 100 UNIT/1 ML 3ML VIAL SQ SCH ×2 (16:19→21:00)
[2018-12-04] MEDS: HYDROMORPHONE 1MG/1ML INJ IV PRN ×2 (16:24→20:49)
[2018-12-04 17:02] LABS: CREATINE KINASE MB 0.9 ng/mL (0-5.0)
[2018-12-04 17:16] LABS: ANION GAP 15.9 mmol/L (8-16); BLOOD UREA NITROGEN 14 mg/dL (7-26); BUN/CREATININE RATIO 13 (6-25); CALCIUM 9.9 mg/dL (8.4-10.2); CARBON DIOXIDE 24 mmol/L (22-29); CHLORIDE 99 mmol/L (98-107); EST GLOMERULAR FILTRATION RATE > 60 ML/MIN (60-); GLUCOSE 286 mg/dL (74-118); POTASSIUM 3.9 mmol/L (3.5-5.1); SODIUM 135 mmol/L (136-145)
[2018-12-04] MEDS: METOCLOPRAMIDE HCL 10 MG/2ML VIAL IV SCH (17:49)
[2018-12-04] MEDS ORDERED: INSULIN LISPRO 100 UNIT/1 ML 3ML VIAL SQ SCH (18:00)
--- NOTE | 2018-12-04 18:18 | NUR ---
per dr catalan order morphine 3 mg iv q3h prn pain; order repeated back and confirmed
[2018-12-04] MEDS: MORPHINE SULFATE INJ 4 MG/ML INJ 1ML IV PRN ×2 (18:40→22:33)
[2018-12-04 20:30] VITALS: BP 140/89
--- NOTE | 2018-12-04 20:32 | NUR ---
Patient arrived to unit at this time. Pt reports pain 10/10 in abdomen at this time.
[2018-12-04 20:56] VITALS: BP 130/89
[2018-12-04 21:00] VITALS: BP 130/89
[2018-12-05] VITALS (10 sets, daily range): BP systolic 121–167; BP diastolic 59–110
[2018-12-05] MEDS: METOCLOPRAMIDE HCL 10 MG/2ML VIAL IV SCH ×5 (00:11→23:51)
[2018-12-05] MEDS: MORPHINE SULFATE INJ 4 MG/ML INJ 1ML IV PRN ×7 (01:33→23:52)
[2018-12-05] MEDS: PANTOPRAZOLE 40 MG 10ML VIAL IV SCH ×3 (03:27→20:44)
[2018-12-05 06:17] LABS: BASOPHILS # (AUTO) 0.1 (0.0-0.1); BASOPHILS % 1.2 % (0.0-1.0); EOSINOPHILS # (AUTO) 0.3 (0.0-0.4); EOSINOPHILS % 2.9 % (0.0-6.0); HEMATOCRIT 41.7 % (38.2-49.6); HEMOGLOBIN 13.9 g/dL (14.0-18.0); LYMPHOCYTES % 31.8 % (18.0-39.1); MEAN CORPUSCULAR HEMOGLOBIN 30.7 pg (28-32); MEAN CORPUSCULAR HGB CONC 33.3 g/dL (31-35); MEAN CORPUSCULAR VOLUME 92.1 fL (81-99); MONOCYTES # (AUTO) 0.8 (0.2-0.8); MONOCYTES % 8.3 % (4.4-11.3); NEUTROPHILS # (AUTO) 5.2 (2.1-6.9); NEUTROPHILS % 55.6 % (38.7-80.0); PLATELET COUNT 223 x10e3/uL (140-360); RED BLOOD COUNT 4.53 x10e6/uL (4.3-5.7); RED CELL DISTRIBUTION WIDTH 12.3 % (11.7-14.4)
[2018-12-05] MEDS: SODIUM CHLORIDE 0.9% 1000ML 1,000 ML IV SCH (06:41)
[2018-12-05 06:47] LABS: CREATINE KINASE MB 0.7 ng/mL (0-5.0)
[2018-12-05 07:15] LABS: ALANINE AMINOTRANSFERASE 21 IU/L (0-55); ALBUMIN 3.3 g/dL (3.5-5.0); ALBUMIN/GLOBULIN RATIO 1.2 (0.8-2.0); ALKALINE PHOSPHATASE 34 IU/L (40-150); ANION GAP 12.3 mmol/L (8-16); BLOOD UREA NITROGEN 10 mg/dL (7-26); BUN/CREATININE RATIO 10 (6-25); CALCIUM 9.2 mg/dL (8.4-10.2); CARBON DIOXIDE 26 mmol/L (22-29); CHLORIDE 102 mmol/L (98-107); EST GLOMERULAR FILTRATION RATE > 60 ML/MIN (60-); GLUCOSE 260 mg/dL (74-118); LIPASE 42 U/L (8-78); POTASSIUM 4.3 mmol/L (3.5-5.1); SODIUM 136 mmol/L (136-145)
[2018-12-05] MEDS: INSULIN REGULAR, HUMAN 100 UNIT/1 ML 3ML VIAL SQ SCH ×4 (07:30→20:53)
[2018-12-05] MEDS: ATENOLOL 100 MG TAB PO SCH ×2 (08:22→08:59)
[2018-12-05] MEDS: METFORMIN HCL 500 MG TAB PO SCH ×2 (08:22→16:58)
[2018-12-05] MEDS: LISINOPRIL 10 MG TAB PO SCH (08:22)
[2018-12-05] MEDS: TRESIBA 20 UNIT SC SCH (08:22)
[2018-12-05] MEDS: ATORVASTATIN 10 MG TAB PO SCH (08:22)
[2018-12-05] MEDS: SITAGLIPTIN 100 MG TAB PO SCH (08:22)
[2018-12-05] MEDS: CHLORTHALIDONE 25 MG TAB PO SCH (08:59)
--- NOTE | 2018-12-05 12:44 | NUR ---
PT OF UNIT FOR HIDA SCAN AT THIS TIME
[2018-12-05] MEDS: HYDROMORPHONE 1MG/1ML INJ IV PRN ×2 (17:21→21:59)
[2018-12-05] MEDS ORDERED: HYDROCODONE/APAP 5MG-325MG TAB PO PRN (17:30)
--- NOTE | 2018-12-05 18:33 | Diagnostic Imaging Report ---
Hepatobiliary Scan with Gallbladder Ejection Fraction Clinical information: Upper abdominal pain Technique: Following intravenous administration of 6.6 millicuries of Tc-99m mebrofenin, dynamic images of the abdomen in the anterior projection were obtained through 33 minutes. Sincalide (CCK analog) 2.1 micrograms was administered intravenously over 30 minutes with additional imaging for determination of gallbladder ejection fraction. Discussion: Perfusion of the liver is normal. Extraction of tracer by the liver parenchyma is normal. Tracer appears promptly within the biliary tract. The gallbladder begins to fill at 15 minutes post injection of tracer and fills adequately. Tracer is seen in the small bowel by 24 minutes. There is no contractile response by the gallbladder to the pharmacologic dose of sincalide. No emptying of the gallbladder occurs during the 30 minute infusion. Impression: 1. Filling of the gallbladder excludes acute cystic duct obstruction/acute cholecystitis. 2. The gallbladder ejection fraction is undefined as there is no emptying of the gallbladder during the infusion of sincalide. This absence of a contractile response to sincalide supports the clinical diagnosis of chronic cholecystitis/gallbladder dyskinesia. Signed by: Dr. Deisi Weldon M.D. on 12/05/2018 6:30 PM
--- NOTE | 2018-12-05 18:47 | NUR ---
spoke with xavier regarding hida scan results. orders to consult md fields given
--- NOTE | 2018-12-05 20:00 | NUR ---
spoke with Dr. Montenegro regarding consultation. Keep patient on NPO after midnight per surgeon.
[2018-12-06] VITALS (7 sets, daily range): BP systolic 107–167; BP diastolic 64–94
--- NOTE | 2018-12-06 00:13 | NUR ---
vitals rechecked BP 148/88 mmhg, MS 62 b/min.
[2018-12-06] MEDS: SODIUM CHLORIDE 0.9% 1000ML 1,000 ML IV SCH ×3 (00:45→16:45)
[2018-12-06] MEDS: MORPHINE SULFATE INJ 4 MG/ML INJ 1ML IV PRN ×6 (02:55→23:15)
[2018-12-06 03:00] LABS: BASOPHILS # (AUTO) 0.1 (0.0-0.1); BASOPHILS % 0.7 % (0.0-1.0); EOSINOPHILS # (AUTO) 0.3 (0.0-0.4); EOSINOPHILS % 2.6 % (0.0-6.0); HEMATOCRIT 41.6 % (38.2-49.6); HEMOGLOBIN 14.3 g/dL (14.0-18.0); LYMPHOCYTES # (AUTO) 4.6 (1.0-3.2); LYMPHOCYTES % 40.2 % (18.0-39.1); MEAN CORPUSCULAR HEMOGLOBIN 30.8 pg (28-32); MEAN CORPUSCULAR HGB CONC 34.4 g/dL (31-35); MEAN CORPUSCULAR VOLUME 89.7 fL (81-99); MONOCYTES # (AUTO) 1.1 (0.2-0.8); MONOCYTES % 9.3 % (4.4-11.3); NEUTROPHILS # (AUTO) 5.4 (2.1-6.9); PLATELET COUNT 259 x10e3/uL (140-360); RED BLOOD COUNT 4.64 x10e6/uL (4.3-5.7)
[2018-12-06 03:18] LABS: ANION GAP 12.3 mmol/L (8-16); BLOOD UREA NITROGEN 6 mg/dL (7-26); BUN/CREATININE RATIO 8 (6-25); CALCIUM 9.8 mg/dL (8.4-10.2); CARBON DIOXIDE 23 mmol/L (22-29); CHLORIDE 107 mmol/L (98-107); EST GLOMERULAR FILTRATION RATE > 60 ML/MIN (60-); GLUCOSE 77 mg/dL (74-118); LIPASE 28 U/L (8-78); MAGNESIUM 1.8 MG/DL (1.3-2.1); SODIUM 139 mmol/L (136-145)
[2018-12-06 03:49] LABS: POTASSIUM 3.3 mmol/L (3.5-5.1)
--- NOTE | 2018-12-06 04:00 | NUR ---
Patient refused to take shower. He states he wants his to assist him and that she is on her way.
[2018-12-06] MEDS ORDERED: PANTOPRAZOLE SOD 40 MG TABEC PO SCH (06:00)
[2018-12-06] MEDS: METOCLOPRAMIDE HCL 10 MG/2ML VIAL IV SCH ×4 (06:01→23:15)
--- NOTE | 2018-12-06 06:31 | NUR ---
patient took a shower.
--- NOTE | 2018-12-06 06:32 | NUR ---
Patient wants to wear his clothes and change with hospital gown later before surgery if scheduled.
[2018-12-06] MEDS: INSULIN REGULAR, HUMAN 100 UNIT/1 ML 3ML VIAL SQ SCH ×4 (07:30→21:00)
[2018-12-06] MEDS: ATENOLOL 100 MG TAB PO SCH (07:36)
[2018-12-06] MEDS: METFORMIN HCL 500 MG TAB PO SCH ×2 (07:36→15:50)
[2018-12-06] MEDS: CHLORTHALIDONE 25 MG TAB PO SCH (07:36)
[2018-12-06] MEDS: ATORVASTATIN 10 MG TAB PO SCH (07:36)
[2018-12-06] MEDS: SITAGLIPTIN 100 MG TAB PO SCH (07:36)
[2018-12-06] MEDS: LISINOPRIL 10 MG TAB PO SCH (07:37)
[2018-12-06] MEDS: TRESIBA 20 UNIT SC SCH (07:37)
[2018-12-06] MEDS: PANTOPRAZOLE 40 MG 10ML VIAL IV SCH ×2 (08:50→21:33)
[2018-12-06] MEDS ORDERED: ONDANSETRON HCL 4 MG ORAL DISINTEGRATING TAB PO PRN (09:15)
[2018-12-06] MEDS ORDERED: MORPHINE SULFATE INJ 10 MG/ML ONE ×2 (13:06→19:49)
[2018-12-06] MEDS ORDERED: FENTANYL CITRATE/PF 100MCG/2 ML INJ ONE (13:06)
[2018-12-06] MEDS ORDERED: MIDAZOLAM HCL 2 MG/2 ML VIAL ONE (13:06)
--- NOTE | 2018-12-06 14:16 | Consultation ---
DATE OF CONSULTATION: 12/06/2018 CHIEF COMPLAINT: Abdominal pain. HISTORY OF PRESENT ILLNESS: The patient is a 48-year-old male with 2 weeks history of pain in the right upper quadrant with nausea and intermittent vomiting. The patient underwent ultrasound showing no gallstones. Upper GI endoscopy showed mild gastritis. The patient also had a HIDA scan, which showed low ejection fraction and the gallbladder suggestive of chronic cholecystitis. PAST MEDICAL HISTORY: Positive for diabetes and hypertension. PAST SURGICAL HISTORY: Negative. ALLERGIES: HE IS ALLERGIC TO PENICILLIN AND TRAMADOL. REVIEW OF SYSTEMS: He denies chest pain or shortness of breath. PHYSICAL EXAMINATION: VITAL SIGNS: Stable. Afebrile. GENERAL: He is awake and alert, in [id number] discomfort. HEENT: Sclerae anicteric. NECK: Supple. LUNGS: Clear. HEART: Regular rate and rhythm. ABDOMEN: Soft with guarding tenderness in the right upper quadrant with no rebound. EXTREMITIES: Without cyanosis or edema. LABORATORY DATA: The patient's white cell count is 11 and hemoglobin of 14. Creatinine of 0.8. Liver function tests within normal limits. HIDA scan as mentioned is positive for no emptying gallbladder with CCK. This is suggestive of chronic cholecystitis. ASSESSMENT: Chronic cholecystitis. PLAN: Laparoscopic cholecystectomy. Attendant risks discussed. Nik Steiner MD DNRudi/MODL /[id number]
[2018-12-06] MEDS ORDERED: BUPIVACAINE 0.25%/EPI 30ML SDV INJ ONE (14:23)
[2018-12-06] MEDS ORDERED: HYDROMORPHONE 1MG/1ML INJ ONE (20:16)
--- NOTE | 2018-12-06 20:45 | NUR ---
Patient came from surgery via hospital bed. Patient is alert and oriented.
[2018-12-07] VITALS: BP 142/81
[2018-12-07] MEDS: SODIUM CHLORIDE 0.9% 1000ML 1,000 ML IV SCH ×3 (00:45→16:45)
[2018-12-07] MEDS: HYDROMORPHONE 1MG/1ML INJ IV PRN (01:05)
--- NOTE | 2018-12-07 02:38 | Operative Report ---
DATE OF PROCEDURE: 12/06/2018 SURGEON: Nik Steiner MD PREOPERATIVE DIAGNOSIS: Cholecystitis. POSTOPERATIVE DIAGNOSIS: Cholecystitis. OPERATIVE PROCEDURE: Laparoscopic cholecystectomy. WOOD EXPERIMENTAL MECHANIC: None. ANESTHESIA: General, Dr. Lindsay. INDICATION: A 48-year-old male with chronic right upper quadrant pain with HIDA scan showing poor emptying of the gallbladder, suggestive of biliary dyskinesia. The patient consented for laparoscopic cholecystectomy. Attendant risks discussed. PROCEDURE FINDINGS: Chronic cholecystitis. DESCRIPTION OF PROCEDURE: The patient was brought to the OR intubated. Abdomen was prepped and draped in sterile fashion. A supraumbilical incision is made and the patient has an umbilical hernia, which is reduced and the fascial defect was entered with a 10 mm port. All the ports were then placed in the midepigastric and right upper quadrant. Gallbladder was chronically inflamed and distended. Fundus was retracted in the cephalad direction. The neck of the gallbladder was retracted laterally. With blunt dissection, we isolated cystic artery, triple clipped, divided. The cystic duct is isolated and junction of the common bile duct is seen before triple clipping the cystic duct and divided the cystic duct 1 cm away from the junction. The cystic duct divided between clips. The gallbladder detached from the liver with cautery and taken out through umbilical port site. Operative field irrigated. Hemostasis achieved. All ports were removed under direct vision. Fascial repair of the umbilical hernia was carried out with interrupted 0 Vicryl skin. Skin was closed with subcuticular stitch. The patient was extubated and transported to the recovery room. ESTIMATED BLOOD LOSS: 5 mL. Nik Steiner MD DNL/MODL /[id number]
[2018-12-07] MEDS: MORPHINE SULFATE INJ 4 MG/ML INJ 1ML IV PRN ×4 (02:49→12:49)
[2018-12-07 04:00] VITALS: BP 183/92
[2018-12-07] MEDS: METOCLOPRAMIDE HCL 10 MG/2ML VIAL IV SCH ×3 (05:38→17:28)
--- NOTE | 2018-12-07 05:45 | NUR ---
BP improved 163/83 MMHG.
[2018-12-07 06:24] LABS: BASOPHILS % 0.2 % (0.0-1.0); HEMATOCRIT 40.9 % (38.2-49.6); HEMOGLOBIN 13.9 g/dL (14.0-18.0); LYMPHOCYTES # (AUTO) 1.8 (1.0-3.2); LYMPHOCYTES % 11.3 % (18.0-39.1); MEAN CORPUSCULAR HEMOGLOBIN 30.9 pg (28-32); MEAN CORPUSCULAR VOLUME 90.9 fL (81-99); MONOCYTES # (AUTO) 0.6 (0.2-0.8); MONOCYTES % 3.6 % (4.4-11.3); NEUTROPHILS # (AUTO) 13.2 (2.1-6.9); NEUTROPHILS % 84.5 % (38.7-80.0); PLATELET COUNT 244 x10e3/uL (140-360); RED CELL DISTRIBUTION WIDTH 12.1 % (11.7-14.4)
[2018-12-07 06:50] LABS: ANION GAP 15.3 mmol/L (8-16); BLOOD UREA NITROGEN 9 mg/dL (7-26); BUN/CREATININE RATIO 9 (6-25); CARBON DIOXIDE 22 mmol/L (22-29); CHLORIDE 101 mmol/L (98-107); EST GLOMERULAR FILTRATION RATE > 60 ML/MIN (60-); GLUCOSE 304 mg/dL (74-118); POTASSIUM 4.3 mmol/L (3.5-5.1); SODIUM 134 mmol/L (136-145)
--- NOTE | 2018-12-07 07:04 | NUR ---
received report from shift manager RN, pt in stable condition, will continue to assess.
[2018-12-07] MEDS: TRESIBA 20 UNIT SC SCH (08:19)
[2018-12-07 09:06] VITALS: BP 183/92
[2018-12-07] MEDS: INSULIN REGULAR, HUMAN 100 UNIT/1 ML 3ML VIAL SQ SCH ×3 (09:14→16:30)
[2018-12-07] MEDS: METFORMIN HCL 500 MG TAB PO SCH ×2 (09:27→17:26)
[2018-12-07] MEDS: PANTOPRAZOLE 40 MG 10ML VIAL IV SCH (09:27)
[2018-12-07] MEDS: CHLORTHALIDONE 25 MG TAB PO SCH (09:29)
[2018-12-07 09:30] VITALS: BP 132/74
[2018-12-07] MEDS: SITAGLIPTIN 100 MG TAB PO SCH (09:30)
[2018-12-07] MEDS: LISINOPRIL 10 MG TAB PO SCH (09:30)
[2018-12-07] MEDS: ATENOLOL 100 MG TAB PO SCH (09:30)
[2018-12-07] MEDS: ATORVASTATIN 10 MG TAB PO SCH (09:30)
[2018-12-07 12:46] VITALS: BP 153/91
[2018-12-07 16:17] VITALS: BP 144/93
[2018-12-07] MEDS ORDERED: TYLENOL WITH C1 EACH PO (16:39)
--- NOTE | 2018-12-08 08:56 | Discharge Summary ---
ADMISSION DIAGNOSES: Abdominal pain, type 2 diabetes, hypertension, hyperlipidemia, and obesity with a BMI of 30.8. DISCHARGE DIAGNOSES: Abdominal pain, type 2 diabetes, hypertension, hyperlipidemia, and obesity with a BMI of 30.8, and gallbladder dyskinesia. HISTORY: Type 2 diabetes, hypertension, gastroparesis, hyperlipidemia, and benign mass of left lung. SURGICAL HISTORY: Noncontributory. FAMILY HISTORY: Noncontributory. SOCIAL HISTORY: The patient admits to occasional alcohol and tobacco use. HOSPITAL COURSE: A 48-year-old male, recently discharged after an EGD when he was found to have gastritis and esophagitis. He was tolerating diet at time of discharge with very little abdominal pain. He now readmits with recurrent right upper quadrant pain. He has associated nausea that began Wednesday and vomiting that began Wednesday. His previous discharge was on . The pain returned later that night. On admission, the patient had a HIDA scan ordered that showed a gallbladder EF is undefined and there was no emptying of the gallbladder during the infusion. The absence of contractile response supports the clinical diagnosis of chronic cholecystitis/gallbladder dyskinesia. Lipase was within normal limits. Surgery was consulted and the patient was taken to the OR where he had a laparoscopic cholecystectomy on 12/06/2018. He tolerated the procedure well. Pain is improved and he is tolerating the diet. The patient will discharge home and follow up with primary care in 1 to 2 weeks. The patient understands discharge instructions and agrees to plan. Vital signs stable. The patient is afebrile. Dictated by Ingrid Jamison NP MD SIMONE Watts/MODL /[id number]
== END 2018-12-07 17:35 | disposition home or self-care (01) | DRG 419 ==
LOC: ER 13:05 → ERHOLD 15:33 → MED/SURG 20:35
PROVIDERS: ADMIT Internal Medicine; ATTEND Internal Medicine
PROC: 0FB44ZZ Excision of Gallbladder, Percutaneous Endoscopic Approach (ICD-10-PCS; principal; 2018-12-06 18:33)
DX: K81.1 Chronic cholecystitis (principal); E11.9 Type 2 diabetes mellitus without complications; I10 Essential (primary) hypertension; R10.9 Unspecified abdominal pain; E66.9 Obesity, unspecified; Z68.30 Body mass index [BMI] 30.0-30.9, adult; E78.5 Hyperlipidemia, unspecified; K82.8 Other specified diseases of gallbladder; K29.70 Gastritis, unspecified, without bleeding; K20.9 Esophagitis, unspecified; J44.9 Chronic obstructive pulmonary disease, unspecified
CPT/HCPCS: 36415; 36600; 78227; 80048; 80053; 81001; 82150; 82550; 82553; 82805; 82948; 83690; 83735; 83880; 84484; 85025; 85610; 85730; 88304; 93005; 99284; A9537; J1170; J1200; J1817; J2250; J2270; J2405; J2765; J3010; J7030; Q0162

== ENCOUNTER 2021-10-30 05:37 | Observation (INO) | payer BC ==
[2021-10-28 13:46] LABS: BASOPHILS # (AUTO) 0.1 (0.0-0.1); BASOPHILS % 1.3 % (0.0-1.0); EOSINOPHILS # (AUTO) 0.1 (0.0-0.4); EOSINOPHILS % 1.5 % (0.0-6.0); HEMATOCRIT 52.5 % (38.2-49.6); HEMOGLOBIN 17.3 g/dL (14.0-18.0); LYMPHOCYTES # (AUTO) 3.5 (1.0-3.2); LYMPHOCYTES % 38.9 % (18.0-39.1); MEAN CORPUSCULAR HEMOGLOBIN 30.5 pg (28-32); MEAN CORPUSCULAR VOLUME 92.4 fL (81-99); MONOCYTES # (AUTO) 0.7 (0.2-0.8); MONOCYTES % 7.5 % (4.4-11.3); NEUTROPHILS # (AUTO) 4.6 (2.1-6.9); NEUTROPHILS % 50.6 % (38.7-80.0); PLATELET COUNT 184 x10e3/uL (140-360); RED BLOOD COUNT 5.68 x10e6/uL (4.3-5.7); RED CELL DISTRIBUTION WIDTH 12.8 % (11.7-14.4)
[2021-10-28 14:04] LABS: INR 0.82; PROTHROMBIN TIME 12.1 seconds (11.9-14.5)
[2021-10-28 14:05] LABS: PARTIAL THROMBOPLASTIN TIME 28.4 seconds (23.8-35.5)
[2021-10-28 14:10] LABS: ANION GAP 11.6 mmol/L (8-16); BLOOD UREA NITROGEN 15 mg/dL (7-26); BUN/CREATININE RATIO 14 (6-25); CARBON DIOXIDE 28 mmol/L (22-29); CHLORIDE 103 mmol/L (98-107); CREATININE, SERUM 1.06 mg/dL (0.72-1.25); GLUCOSE 137 mg/dL (74-118); POTASSIUM 4.6 mmol/L (3.5-5.1); SODIUM 138 mmol/L (136-145)
[~2021-10-30] VITALS: Ht 185.4 cm; Wt 90.7 kg
[~2021-10-30 05:37] MED LIST changes: +SUBOXONE 4 MG-1 EACH PO; +TYLENOL WITH C1 EACH PO
[2021-10-30] MEDS ORDERED: Vancomycin IV 1 GM VIAL ONE ×2 (05:56→06:37)
[2021-10-30] MEDS ORDERED: SODIUM CHLORIDE 0.9% 250ML 250 ML ONE (05:56)
[2021-10-30] MEDS ORDERED: THROMBIN FOR SOLN 5,000 UNIT VIAL ONE (06:37)
[2021-10-30] MEDS ORDERED: LIDOCAINE 1% W/EPINEPHRINE 20 ML VIAL ONE (06:37)
[2021-10-30] MEDS ORDERED: NON-FORMULARY MEDICATION (Atenolol/Chlorthalidone (Atenolol-Chlorthalidone 100-25) 1 TAB) PO SCH (10:00)
[2021-10-30] MEDS ORDERED: TESTOSTERONE CYPIONATE 200 MG/ML VIAL IM SCH (10:00)
[2021-10-30] MEDS ORDERED: ACETAMINOPHEN 325 MG TAB PO PRN (10:00)
[2021-10-30] MEDS ORDERED: ZOLPIDEM TARTRATE 5 MG TAB PO PRN (10:00)
[2021-10-30] MEDS ORDERED: ONDANSETRON HCL INJ 2MG/ML 2ML 2 MG/ML VIAL IV PRN (10:00)
[2021-10-30] MEDS ORDERED: MAGNESIUM/ALUMINUM/SIMETHICONE 30 ML UDC PO PRN (10:00)
[2021-10-30] MEDS ORDERED: Morphine 10mg syringe 10 MG/ML INJ IM PRN (10:00)
[2021-10-30] MEDS ORDERED: Vancomycin IV 1 GM in SODIUM CHLORIDE 0.9% 250ML 250 ML IV ONE (10:00)
[2021-10-30] MEDS ORDERED: PROMETHAZINE HCL (IM) 25 MG/ML VIAL IM PRN (10:00)
[2021-10-30] MEDS ORDERED: FENTANYL CITRATE/PF 100MCG/2 ML INJ ONE ×2 (10:06→14:06)
[2021-10-30] MEDS ORDERED: HYDROMORPHONE 1MG/1ML INJ ONE ×2 (10:19→10:37)
[2021-10-30] MEDS: CARISOPRODOL 350 MG TAB PO PRN (10:43)
[2021-10-30] MEDS: OXYCODONE/ACETAMINOPHEN 5-325 1 EACH TABLET PO PRN (10:43)
[2021-10-30] MEDS ORDERED: HYDROCODON-ACE1 EA12 PO (10:54)
[2021-10-30 11:38] VITALS: BP 166/93
[2021-10-30 11:40] VITALS: BP 166/93
[2021-10-30 11:50] VITALS: BP 166/93
[2021-10-30] MEDS: HYDROMORPHONE 2MG/ML 2 MG/ML ML IV PRN ×3 (11:50→20:30)
[2021-10-30] MEDS ORDERED: ATENOLOL 100 MG TAB PO PRN (12:00)
[2021-10-30] MEDS ORDERED: CHLORTHALIDONE 25 MG TAB PO SCH (12:00)
[2021-10-30] MEDS ORDERED: ATENOLOL 100 MG TAB PO SCH (12:00)
[2021-10-30] MEDS ORDERED: CHLORTHALIDONE 25 MG TAB PO PRN (12:00)
[2021-10-30] MEDS ORDERED: POVIDONE IODINE 0.05% 0.05 % ML PO ONE (12:10)
[2021-10-30] MEDS ORDERED: ACETAMINOPHEN 1000 MG/100 ML IV ONE (12:10)
[2021-10-30] MEDS ORDERED: LIDOCAINE HCL 2% LOCAL INJ 5 ML SDV VIAL INJ ONE (12:10)
[2021-10-30] MEDS ORDERED: PROPOFOL IV EMULSION 10 MG/ML 20 ML VIAL ONE (12:10)
[2021-10-30] MEDS ORDERED: ONDANSETRON HCL INJ 2MG/ML 2ML 2 MG/ML VIAL ONE (12:10)
[2021-10-30] MEDS ORDERED: DEXAMETHASONE SOD PHOS INJ 4 MG/ML SDV ONE (12:10)
[2021-10-30] MEDS ORDERED: IBUPROFEN 800 MG/200 ML BAG IV ONE (12:10)
[2021-10-30] MEDS ORDERED: ROCURONIUM BROMIDE 10 MG/ML 5ML VIAL IV ONE (12:10)
[2021-10-30] MEDS ORDERED: SEVOFLURANE INHAL SOLN 250 ML PEN BTL ONE (12:10)
[2021-10-30] MEDS ORDERED: MIDAZOLAM HCL 2 MG/2 ML VIAL ONE (14:06)
[2021-10-30 14:50] VITALS: BP 154/87
[2021-10-30] MEDS: LACTATED RINGER'S 1,000 ML IV SCH ×2 (16:47→18:20)
[2021-10-30 20:00] VITALS: BP 131/85
[2021-10-30 20:43] VITALS: BP 154/87
[2021-10-31] VITALS: BP 127/76
[2021-10-31] MEDS: LACTATED RINGER'S 1,000 ML IV SCH (02:40)
[2021-10-31] MEDS: HYDROMORPHONE 2MG/ML 2 MG/ML ML IV PRN (02:52)
[2021-10-31] MEDS: OXYCODONE/ACETAMINOPHEN 5-325 1 EACH TABLET PO PRN ×3 (03:45→10:30)
[2021-10-31 04:00] VITALS: BP 144/87
[2021-10-31] MEDS: CARISOPRODOL 350 MG TAB PO PRN ×2 (05:26→09:33)
[2021-10-31] MEDS ORDERED: Morphine 4mg INJECTION 4 MG/ML INJ IV PRN (06:15)
[2021-10-31 08:42] VITALS: BP 151/88
[2021-10-31 08:46] VITALS: BP 151/88
[2021-10-31] MEDS ORDERED: SITAGLIPTIN 100 MG TAB PO SCH (09:00)
[2021-11-16] MEDS ORDERED: TESTOSTERONE CYPIONATE 200 MG/ML VIAL IM SCH (11:15)
== END 2021-10-31 11:34 | disposition home or self-care (01) ==
LOC: OR 05:37 → PACU V 10:13 → MED/SURG3 11:27
PROVIDERS: ADMIT Neurological Surgery; ATTEND Neurological Surgery
DX: M50.022 Cervical disc disorder at C5-C6 level with myelopathy (principal); M47.12 Other spondylosis with myelopathy, cervical region; I10 Essential (primary) hypertension; E11.9 Type 2 diabetes mellitus without complications; Z79.84 Long term (current) use of oral hypoglycemic drugs; Z91.19 Patient's noncompliance with other medical treatment and regimen; E78.5 Hyperlipidemia, unspecified; F17.210 Nicotine dependence, cigarettes, uncomplicated; Z01.810 Encounter for preprocedural cardiovascular examination; Z01.812 Encounter for preprocedural laboratory examination; Z01.818 Encounter for other preprocedural examination; Z20.822 Contact with and (suspected) exposure to COVID-19
CPT/HCPCS: 0223U; 20931; 22551; 22552; 22845; 36415 ×2; 71046; 72040; 76000; 80048; 82948; 85025; 85610; 85730; 86850; 86900; 88304; 93005; C1713 ×5; C1763; G0378 ×2; J0131; J1100; J1170 ×3; J2001; J2250; J2270; J2405; J2704; J3010; J3370; J7050; J7121; J2550